=== PATIENT | female | born 1965 | race Caucasian/White ===

== ENCOUNTER → 2019-12-05 13:48 | Outpatient (BNVA) | payer OTHER, SELFPAY | PROVIDERS: Family Provider Family Medicine; PCP Family Medicine; Visit Provider Otolaryngology | DX: R09.81 Nasal congestion (principal); J34.2 Deviated nasal septum; J34.3 Hypertrophy of nasal turbinates; R43.8 Other disturbances of smell and taste; J32.9 Chronic sinusitis, unspecified; H91.90 Unspecified hearing loss, unspecified ear | CPT/HCPCS: 99203; 99214 ==

== ENCOUNTER 2019-12-23 11:27 | Outpatient (CLI) | payer OTHER, SELFPAY ==
--- NOTE | 2019-12-23 11:36 | MM_ITS ---
WS: [id number] BILATERAL DIGITAL SCREENING MAMMOGRAPHY WITH CAD CLINICAL INFORMATION: SCREENING HISTORY: Screening mammogram. No current complaints. COMPARISON: July 11, 2016 TECHNIQUE: Bilateral CC and MLO views. FINDINGS: Scattered fibroglandular densities bilaterally. No suspicious focal mass, asymmetry, calcifications, or architectural distortion. No evidence of malignancy. MM/[id number] IMPRESSION: BI-RADS: 1-Negative FOLLOW UP: 1 Year Follow-up Recommend return to annual screening mammography.
== END 2019-12-23 11:28 | disposition home or self-care (01) ==
LOC: RADSHAW 11:28
PROVIDERS: Family Provider Family Medicine; PCP Family Medicine; Visit Provider Family Medicine
DX: Z12.31 Encounter for screening mammogram for malignant neoplasm of breast (principal)
CPT/HCPCS: 77067

== ENCOUNTER 2019-12-23 14:59 | Outpatient (CLI) | payer OTHER, SELFPAY ==
--- NOTE | 2019-12-23 15:00 | CT_ITS ---
WS: [id number] CT SINUSES TECHNIQUE: Noncontrast CT of the paranasal sinuses with coronal and sagittal reformatted images. CLINICAL INFORMATION: Chronic sunusitis COMPARISON: None. DLP: 524.[address] scans at [facility] use at least one of these dose optimization techniques: automat ed exposure control; mA and/or kV adjustment per patient size (includes targeted exams where dose is matched to clinical indication); or iterative reconstruction. FINDINGS: Left to right nasal septal deviation measuring 5.3 mm with a rightward directed spur. Paranasal sinuses are well aerated. Mild narrowing of the ostiomeatal units bilaterally. Left angi bullosa. Maxillary sinuses are well aerated. Hypoplastic frontal sinuses. Ethmoid air cells are well aerated. Sphenoid sinuses are well aerated. M ild narrowing along the right sphenoid sinus ostia. Mastoid air cells are well aerated. Normal parapharyngeal fat. Partially visualized intracranial contents are normal. CT/CT sinus wo con* [id number] IMPRESSION: 1. Left to right nasal septal deviation measuring 5.3 mm with a rightward dire cted spur. 2. Ostiomeatal units are patent with mild narrowing. 3. Left angi bullosa. 4. Hypoplastic frontal sinuses. 5. Paranasal sinuses are well aerated. Mild narrowing along the right sphenoid sinus ostia. 6. Mastoid air cells are well aerated.
== END 2019-12-23 15:00 | disposition home or self-care (01) ==
LOC: RAD 14:59
PROVIDERS: Family Provider Family Medicine; PCP Family Medicine; Visit Provider Otolaryngology
DX: J34.89 Other specified disorders of nose and nasal sinuses (principal); J32.9 Chronic sinusitis, unspecified; J34.2 Deviated nasal septum
CPT/HCPCS: 70486

== ENCOUNTER → 2019-12-30 11:35 | Outpatient (BNVA) | payer OTHER, SELFPAY | PROVIDERS: Family Provider Family Medicine; PCP Family Medicine; Visit Provider Otolaryngology | DX: R09.81 Nasal congestion (principal); J34.2 Deviated nasal septum; J34.3 Hypertrophy of nasal turbinates; R43.8 Other disturbances of smell and taste; H91.90 Unspecified hearing loss, unspecified ear | CPT/HCPCS: 99213; 99214 ==

== ENCOUNTER → 2020-05-28 10:12 | Outpatient (BNVA) | payer OTHER, SELFPAY | PROVIDERS: Family Provider Family Medicine; PCP Family Medicine; Visit Provider Obstetrics & Gynecology | DX: Z12.4 Encounter for screening for malignant neoplasm of cervix (principal); L73.2 Hidradenitis suppurativa; N95.1 Menopausal and female climacteric states | CPT/HCPCS: 88175 ==

== ENCOUNTER 2020-06-21 12:32 | Emergency (ER) | payer OTHER, SELFPAY ==
[2020-06-21 12:41] VITALS: BP 132/81; PULSE 80; RESP 18; TEMP 36.8; O2SAT 97; BMI 50.9
--- NOTE | 2020-06-21 13:10 | CT_ITS ---
WS: [id number] CT ABDOMEN AND PELVIS WITH CONTRAST HISTORY: pain, RIGHT lower quadrant pain TECHNIQUE: Imaging performed of the abdomen and pelvis with IV contrast. Single phase imaging of the abdomen. Coronal and sagittal reformats are submitted. All CT scans at [facility] use at least one of these dose optimization techniques: automated exposure control; mA and/or kV adjustment per patient size (includes targeted exams where dose is matched to clinical indication); or iterativ e reconstruction. IV CONTRAST: Omnipaque 300; 95 mL IV. Oral contrast: No DLP: 1908.19 mGy.cm COMPARISON: None available. Lower thorax: 2 mm nodule along the LEFT major fissure. Heart is normal size. Small hiatal hernia. Liver/biliary system: Mild hepatomegaly and a and hepatic steatosis. Gallbladder: Normal. No gallstones or wall thickening. No pericholecystic fluid. Pancreas: Normal. Spleen: Normal size spleen with a calcified granuloma. Adrenal glands: Normal. Right kidney: Normal. Left kidney: Normal. Aorta: Normal. Lymphadenopathy: None. Free fluid: None. GI tract: Normal appendix. No GI tract obstruction. Numerous diverticula in the descending and sigmoi d colon. No evidence for acute diverticulitis. Abdominal wall: Unremarkable abdominal wall. No hernia. Pelvis: No free fluid or adenopathy. Minimally distended urinary bladder. Uterus and ovaries are nega tive. Bones: Unremarkable. CT/CT abdomen pelvis w con* [id number] IMPRESSION: 1. Normal appendix. 2. No renal calcification or obstruction. 3. Colonic diverticulosis without acute diverticulitis.
--- NOTE | 2020-06-21 13:11 | ED_ITS ---
HPI - Abdominal Pain General: Chief Complaint: Abdominal Pain Stated Complaint: lower r side pain Time Seen by Provider: 06/21/20 13:03 History of Present Illness: HPI narrative: Patient states right lower quadrant pain since last night has been nauseated has not vomited does have diarrhea. Has fever and chills. MD elicited complaint: abdominal pain Onset (ago): hour(s) Pain Consistency: constant Location: RLQ Severity: moderate Quality: aching Radiation: none Exacerbating factors: nothing Relieving factors: nothing Context: recent antibiotic use Associated Symptoms: Reports nausea; Denies chills and fever(s) Review of Systems Const: Denies: fever(s), chills or body aches Eyes: Denies: change in vision or blurry vision ENMT: Denies: throat pain or nasal congestion Card: Denies: chest pain or dyspnea on exertion Resp: Denies: dyspnea, productive cough or non-productive cough GI: Reports: abdominal pain and nausea Musc: Denies: extremity pain Skin/Breast: Denies: rash Neuro: Denies: headache(s) Psych: Denies: anxiety or depression Familia/Lymph: Denies: easy bruising PFSH ED PFSH: Medical History (Updated 05/31/20 @ 18:24 by Campbell Loving MD) Diabetes Generalized anxiety disorder Hearing loss Hidradenitis suppurativa Hyperlipidemia Hypertension Hyposmia Menopause syndrome Nasal septal deformity Nasal turbinate hypertrophy Surgical History (Updated 05/31/20 @ 18:18 by Campbell Loving MD) History of hand surgery Reattachment of the left middle finger and pinky History of hemorrhoidectomy History of left shoulder replacement (10/12/18) History of melanoma excision Left shoulder and right bicep regions Family History Mother Hypertension Hypercholesterolemia Family history of thyroid problem CAD (coronary artery disease) Heart disease Sister Family history of thyroid problem Brother Colon cancer Social History Smoking and tobacco status: never smoked Alcohol intake: never Marital status: Current occupational status: employed Physical Exam Const: COMMON NORMALS: no acute distress, average body habitus and patient oriented x3 HENMT: COMMON NORMALS: normocephalic HEAD & SCALP: normal to inspection and normocephalic FACE & SINUS: normal facial exam Eye: COMMON NORMALS: conjunctivae normal GENERAL EYE: appearance normal, both eyes and all related structures CONJUNCTIVA: Yes conjunctivae normal Neck/C-Spine: COMMON NORMALS: no JVD Chest: COMMONS NORMALS: normal inspection of the chest Resp: COMMON NORMALS: normal respiratory effort and clear to auscultation bilaterally AUSCULTATION: clear to auscultation bilaterally Cardio: COMMON NORMALS: no JVD, regular rate and regular rhythm RATE: regular rate RHYTHM: regular rhythm GI: COMMON NORMALS: Normal to inspection, nondistended, normoactive bowel sounds present PALPATION: Yes Tenderness to palpation present (GI) Details: RLQ Extremity: COMMON NORMALS: normal to inspection and full ROM Neuro: COMMON NORMALS: patient oriented x3 Course Vital Signs: Vital signs: Vital Signs Temperature 98.3 F 06/21/20 12:41 Pulse Rate 80 06/21/20 12:41 Respiratory Rate 18 06/21/20 12:41 Blood Pressure 132/81 06/21/20 12:41 Pulse Oximetry 97 06/21/20 12:41 Discharge Plan Discharge Prescriptions: No Action atorvastatin 10 mg tablet 10 mg PO ONCE RF: 0 lisinopril-hydrochlorothiazide 20-25 mg tablet 1 tab PO ONCE RF: 0 ibuprofen 800 mg tablet 800 mg PO TID RF: 0 sertraline 100 mg tablet 100 mg PO BID RF: 0 tizanidine 4 mg tablet 4 mg PO ONCE PRNRF: 0 metformin 1,000 mg tablet extended release 24hr 500 mg PO BID RF: 0 citalopram [Celexa] 20 mg tablet 20 mg PO DAILY RF: 0 spironolactone 100 mg tablet 100 mg PO DAILY Qty: 90 RF: 3 sulfamethoxazole-trimethoprim [Bactrim DS] 800-160 mg tablet 1 tab PO BID Qty: 14 RF: 0 doxycycline hyclate 100 mg capsule 100 mg PO DAILY Qty: 30 RF: 0 estradiol 0.5 mg tablet 0.5 mg PO DAILY Qty: 90 RF: 3 medroxyprogesterone [Provera] 2.5 mg tablet 2.5 mg PO DAILY Qty: 90 RF: 3 Coding Level of Care Code ED 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
[2020-06-21 13:44] LABS: Basophils # 0.1 10^3/uL (0.0-0.1); Basophils % 0.5 %; Eosinophils # 0.1 10^3/uL (0.0-0.8); Eosinophils % 1.1 %; Hematocrit 39.4 % (37.0-47.0); Hemoglobin 12.7 g/dL (11.5-15.3); Lymphocytes # 4.2 10^3/uL (0.8-4.8); Lymphocytes % 42.9 %; Mean Corpuscular HGB Conc 32.2 g/dL (30.0-36.0); Mean Platelet Volume 10.3 fL (7.4-10.4); Monocytes # 0.8 10^3/uL (0.2-0.9); Monocytes % 7.8 %; Neutrophils # 4.65 10^3/uL (1.8-7.7); Neutrophils % 47.5 %; Nucleated Red Blood Cells % 0 %; Platelet Count 274 10^3/cmm (130-400); Red Blood Count 4.38 10^6/uL (4.1-5.3); Red Cell Distribution Width 13.1 % (12.1-15.1); White Blood Count 9.8 10^3/uL (4.0-10.0)
[2020-06-21 14:01] LABS: Alanine Aminotransferase 31 U/L (0-33); Albumin Level 4.5 g/dL (3.5-5.2); Alkaline Phosphatase 89 IU/L (35-105); Anion Gap 16.3 (5-19); Aspartate Amino Transferase 22 U/L (0-32); Blood Urea Nitrogen 21 mg/dL (6-20); Carbon Dioxide 27 mmol/L (22-29); Chloride 100 mmol/L (98-107); Globulin 3.3 g/dL (1.3-4.6); Glomerular Filtration Rate 86.6 mL/min (90-130); Glucose 107 mg/dL (65-115); Lipase 38 U/L (13-60); Osmolality Calculated 285 mOsm/kg (285-295); Potassium 4.3 mmol/L (3.5-5.1); Sodium 139 mmol/L (136-145); Total Bilirubin 0.3 mg/dL (0.15-1.2); Total Protein 7.8 g/dL (6.6-8.7)
[2020-06-21 14:04] LABS: Add Urine Microscopic? NO
[2020-06-21] MEDS: ketorolac 30 mg/mL INJ IVP (14:04)
[2020-06-21] MEDS: sodium chloride 0.9% 1,000 ML 999 ML IV (14:04)
[2020-06-21] MEDS: ondansetron 2 mg/ML SDV 2 mL 4 MG IVP (14:04)
[2020-06-21 14:05] LABS: Bilirubin Urine Neg (NEGATIVE); Blood Urine Neg (Negative); Glucose Urine UA Norm (Normal); Ketones Urine Negative (Negative); Leukocyte Esterase Urine Negative (Negative); Nitrate Urine Negative (Negative); Protein Urine Neg (Negative); Specific Gravity, Urine 1.025 (1.005-1.030); Urine Appearance Clear (CLEAR); Urine Color Yellow (Yellow); Urobilinogen Urine Neg (Negative); pH Urine 5 (5-7)
[2020-06-21 14:56] VITALS: BP 103/60; PULSE 85; O2SAT 88
--- NOTE | 2020-06-21 14:57 | PC.NURSE ---
pt asleep and having apneic episodes with oxygen saturation as low as 81%. nurse applied NC 2L/min
[2020-06-21] MEDS: iohexol 300 mg/mL 100 mL Btl IV (15:14)
[2020-06-21 17:13] VITALS: BP 125/77; PULSE 71; O2SAT 99
== END 2020-06-21 17:15 | disposition home or self-care (01) ==
PROVIDERS: Emergency Provider Nurse Practitioner Family; PCP Family Medicine
DX: R10.9 Unspecified abdominal pain (principal); E11.9 Type 2 diabetes mellitus without complications; E78.5 Hyperlipidemia, unspecified; I10 Essential (primary) hypertension
CPT/HCPCS: 12345; 74177; 80053; 81003; 83690; 85025; 96361; 96374; 96375; 96376; 99282; 99283; J1885; J2405; J7030; Q9967

== ENCOUNTER 2021-02-11 11:16 | Outpatient (CLI) | payer OTHER, SELFPAY ==
--- NOTE | 2021-02-11 11:26 | MM_ITS ---
WS: [id number] SCREENING DIGITAL MAMMOGRAM WITH CAD HISTORY: SCREENING COMPARISON: 12/23/2019, 07/21/2016 Bilateral CC and MLO views submitted. Computer aided detection analyzed. Breast composition: The breasts are heterogeneously dense, which may obscure small masses. Asymmetry central to the RIGHT nipple at a middle depth measures 10 mm. This may be superimposed fibroglandular tissue. Not definitely seen on the lateral projection. MM/[place] [id number] IMPRESSION: BI-RADS: 0-Incomplete: Need additional imaging evaluation FOLLOW UP: Need Additional Imaging RIGHT breast: Spot compression views (CC ). True ML. Ultrasound to follow if ab normality persists.
== END 2021-02-11 11:17 | disposition home or self-care (01) ==
LOC: RADSHAW 11:19
PROVIDERS: Visit Provider Nurse Practitioner Family
DX: Z12.31 Encounter for screening mammogram for malignant neoplasm of breast (principal); N64.89 Other specified disorders of breast
CPT/HCPCS: 77067

== ENCOUNTER 2021-02-18 10:40 | Outpatient (CLI) | payer OTHER, SELFPAY ==
--- NOTE | 2021-02-18 10:47 | US_ITS ---
WS: [id number] ADDITIONAL VIEWS RIGHT BREAST RIGHT breast ultrasound, limited HISTORY: ABNORMAL MAMMOGRAM COMPARISON: 02/11/2021 and 12/23/2019 Compression views right CC projection. True ML also submitted. Asymmetry persists on the CC projection central to the nipple at a middle depth measuring 12 mm. I joseph spect this is in the central breast. Cannot definitely see whether this is above or below the nipple line. RIGHT breast ultrasound, limited. At 12:00, 2 cm from the nipple is a hypoechoic ovoid mass measuring 9 x 6 x 6 mm. Mild peripheral inc reased vascularity. This corresponds in size and position to the mammographic abnormality. There are several adjacent benign cyst. US/US breast RT limited* [id number] IMPRESSION: BI-RADS: 4-Suspicious Finding-Biopsy Should Be Considered FOLLOW-UP: Biopsy Recommended Ultrasound-guided biopsy recommended of the mass at 12:00 RIGHT breast. Report called and given to Maribel at the time of dictation.
== END 2021-02-18 10:41 | disposition home or self-care (01) ==
LOC: RADSHAW 10:42
DX: R92.8 Other abnormal and inconclusive findings on diagnostic imaging of breast (principal); N63.15 Unspecified lump in the right breast, overlapping quadrants
CPT/HCPCS: 76642; 77065

== ENCOUNTER → 2021-10-04 09:52 | Outpatient (BNVA) | payer OTHER, SELFPAY | PROVIDERS: Visit Provider Obstetrics & Gynecology | DX: N89.8 Other specified noninflammatory disorders of vagina (principal) | CPT/HCPCS: 87070; 87205; 87481; 87491; 87512; 87591; 87661; 87798; 87799 ==

== ENCOUNTER → 2021-10-28 10:03 | Outpatient (BNVA) | payer OTHER, SELFPAY | PROVIDERS: Visit Provider Obstetrics & Gynecology | DX: Z01.419 Encounter for gynecological examination (general) (routine) without abnormal findings (principal); D25.9 Leiomyoma of uterus, unspecified | CPT/HCPCS: 76830 ==

== ENCOUNTER → 2021-11-08 15:23 | Outpatient (BNVA) | payer OTHER, SELFPAY | PROVIDERS: Visit Provider Obstetrics & Gynecology | DX: N76.0 Acute vaginitis (principal); B96.89 Other specified bacterial agents as the cause of diseases classified elsewhere; Z86.19 Personal history of other infectious and parasitic diseases | CPT/HCPCS: 87481; 87512; 87661; 87798; 87799 ==

== ENCOUNTER 2023-01-30 19:16 | Emergency (ER) | payer OTHER, SELFPAY ==
[2023-01-30 19:23] VITALS: BP 130/75; PULSE 90; RESP 18; TEMP 36.6; O2SAT 96; BMI 45.3
--- NOTE | 2023-01-30 23:08 | XRR_ITS ---
PROCEDURE INFORMATION: Exam: XR Right Foot Exam date and time: 01/30/2023 11:19 PM Age: 58 years old Clinical indication: Swelling, leg or foot; Additional info: Forefoot pain, swelling redness TECHNIQUE: Imaging protocol: Radiologic exam of the right foot. Views: 3 or more views. COMPARISON: No relevant prior studies available. FINDINGS: Bones/joints: Normal. Soft tissues: Normal. XR/XR foot RT min 3V* [id number] IMPRESSION: No acute osseous findings.
--- NOTE | 2023-01-30 23:08 | XRR_ITS ---
PROCEDURE INFORMATION: Exam: XR Left Foot Exam date and time: 01/30/2023 11:17 PM Age: 58 years old Clinical indication: Swelling, leg or foot; Additional info: Forefoot pain, swelling redness TECHNIQUE: Imaging protocol: Radiologic exam of the left foot. Views: 3 or more views. COMPARISON: No relevant prior studies available. FINDINGS: Bones/joints: Normal. Soft tissues: Normal. XR/XR foot LT min 3V* [id number] IMPRESSION: No acute osseous findings.
[2023-01-30 23:58] VITALS: BP 146/74; PULSE 90; RESP 18; O2SAT 100
[2023-01-31 00:04] LABS: Basophils % 0.3 %; Eosinophils # 0.1 10^3/uL (0.0-0.8); Eosinophils % 0.7 %; Erythrocyte Sedimentation Rate 7 mm/hr (0-15); Hematocrit 36.2 % (37.0-47.0); Lymphocytes # 3.6 10^3/uL (0.8-4.8); Lymphocytes % 34.6 %; Mean Corpuscular HGB Conc 33.1 g/dL (30.0-36.0); Mean Corpuscular Hemoglobin 29.9 pg (28.0-34.0); Mean Corpuscular Volume 90.3 fl (81-99); Mean Platelet Volume 10.5 fL (7.4-10.4); Monocytes # 1.1 10^3/uL (0.2-0.9); Monocytes % 10.6 %; Neutrophils # 5.54 10^3/uL (1.8-7.7); Neutrophils % 53.6 %; Nucleated Red Blood Cells % 0 %; Platelet Count 271 10^3/cmm (130-400); Red Blood Count 4.01 10^6/uL (4.1-5.3); Red Cell Distribution Width 12.5 % (12.1-15.1); White Blood Count 10.3 10^3/uL (4.0-10.0)
--- NOTE | 2023-01-31 00:05 | ED_ITS ---
HPI - Extremity Problem General: Chief complaint: Extremity Problem,Nontraumatic Stated complaint: bilateral feet pain/swelling Time Seen by Provider: 01/30/23 22:46 Source: patient and family History of Present Illness: 58-year-old female with a history of gout . She was treated for a flare MD Complaint: joint swelling and joint pain Onset (ago): day(s) Pain Consistency: constant Location: left, right and toe Quality: stabbing and aching Radiation: proximal Relieving factors: nothing Exacerbating factors: range of motion, weight bearing and walking Associated symptoms: Reports arthralgias and rash (mild); Deny chest pain, fever(s) or short of breath Review of Systems Const: Denies: fever(s) Card: Denies: chest pain Resp: Denies: dyspnea GI: Denies: abdominal pain, nausea or vomiting Musc: Reports: joint pain, joint swelling, joint redness, joint warmth and joint stiffness Skin/Breast: Reports: rash (mild) PFSH ED PFSH: Medical History Diabetes Generalized anxiety disorder Hearing loss Hidradenitis suppurativa Hyperlipidemia Hypertension Hyposmia Menopause syndrome Nasal septal deformity Nasal turbinate hypertrophy Obstructive sleep apnea Surgical History History of colonoscopy History of hand surgery Reattachment of the left middle finger and pinky History of hemorrhoidectomy History of left shoulder replacement (10/12/18) History of melanoma excision Left shoulder and right bicep regions History of nasal surgery History of tonsillectomy Family History Mother Hypertension Hypercholesterolemia Family history of thyroid problem CAD (coronary artery disease) Heart disease Sister Family history of thyroid problem Brother Colon cancer Denies family history of Diabetes Clotting disorder Chronic kidney disease (CKD) Bleeding disorder Stroke Social History Smoking and tobacco status: never smoked Alcohol intake: never Marital status: Current occupational status: employed Physical Exam Const: COMMON NORMALS: no acute distress HENMT: COMMON NORMALS: normocephalic and atraumatic HEAD & SCALP: normocephalic and atraumatic Eye: COMMON NORMALS: Equal, round and reactive pupils present and EOMs intact bilaterally PUPIL: Yes Equal, round and reactive pupils present Chest: CHEST: Yes Symmetrical chest wall rise Resp: COMMON NORMALS: normal respiratory effort, No use of accessory muscles and clear to auscultation bilaterally AUSCULTATION: clear to auscultation b ilaterally Cardio: COMMON NORMALS: regular rate and regular rhythm RATE: regular rate RHYTHM: regular rhythm GI: COMMON NORMALS: Normal to inspection, nondistended, normoactive bowel sounds present Extremity: OTHER: First and second MTPs bilaterally swollen, red, tender to touch. Worse on right than left. Neuro: SIDDHARTHA COMA SCALE: document GCS findings Crumpler coma scale eye opening: Spontaneous Crumpler coma scale verbal response: Orientated Crumpler coma scale motor response: Obey commands Siddhartha coma scale total score: 15 Course Vital Signs: Vital signs: Vital Signs Temperature 97.8 F 01/30/23 19:23 Pulse Rate 90 01/31/23 01:23 Respiratory Rate 18 01/31/23 01:23 Blood Pressure 146/74 01/31/23 01:23 Pulse Oximetry 100 01/31/23 01:23 Oxygen Delivery Me thod 01/30/23 23:58 MDM - Extremity (Nontraumatic) Medical Decision Making 58-year-old female with bilateral forefoot pain, redness, and swelling. X-rays are negative. White blood cell count is 10. Sed rate is only 7. CRP is 42. She has been treated for gout in the past with improvement. Clinically this appears to be gout again. Her uric acid level is elevated at 9. She will get colchicine. Tramadol for pain control. Close outpatient follow-up. Lab Data 01/30/23 23:44 01/30/23 23:44 Radiology Impressions Foot X-Ray 01/30/23 23:08 IMPRESSION: No acute osseous findings. Laboratory Results WBC 10.3 10^3/uL (4.0-10.0) H 01/30/23 23:44 RBC 4.01 10^6/uL (4.1-5.3) L 01/30/23 23:44 Hgb 12.0 g/dL (11.5-15.3) 01/30/23 23:44 Hct 36.2 % (37.0-47.0) L 01/30/23 23:44 MCV 90.3 fl (81-99) 01/30/23 23:44 MCH 29.9 pg (28.0-34.0) 01/30/23 23:44 MCHC 33.1 g/dL (30.0-36.0) 01/30/23 23:44 RDW 12.5 % (12.1-15.1) 01/30/23 23:44 Plt Count 271 10^3/cmm (130-400) 01/30/23 23:44 MPV 10.5 fL (7.4-10.4) H 01/30/23 23:44 Neut % (Auto) 53.6 % 01/30/23 23:44 Lymph % (Auto) 34.6 % 01/30/23 23:44 [place] % (Auto) 10.6 % 01/30/23 23:44 Eos % (Auto) 0.7 % 01/30/23 23:44 Baso % (Auto) 0.3 % 01/30/23 23:44 Neut # (Auto) 5.54 10^3/uL (1.8-7.7) 01/30/23 23:44 Lymph # (Auto) 3.6 10^3/uL (0.8-4.8) 01/30/23 23:44 [place] # (Auto) 1.1 10^3/uL (0.2-0.9) H 01/30/23 23:44 Eos # (Auto) 0.1 10^3/uL (0.0-0.8) 01/30/23 23:44 Baso # (Auto) 0.0 10^3/uL (0.0-0.1) 01/30/23 23:44 Nucleated RBC % (auto) 0 % 01/30/23 23:44 Nucleated RBCs # 0.0 /100WBC 01/30/23 23:44 ESR 7 mm/hr (0-15) 01/30/23 23:44 Sodium 142 mmol/L (136-145) 01/30/23 23:44 Potassium 4.3 mmol/L (3.5-5.1) 01/30/23 23:44 Chloride 102 mmol/L (98-107) 01/30/23 23:44 Carbon Dioxide 27 mmol/L (22-29) 01/30/23 23:44 Anion Gap 17.3 (5-19) 01/30/23 23:44 BUN 20 mg/dL (6-20) 01/30/23 23:44 Creatinine 1.0 mg/dL (0.5-0.9) H 01/30/23 23:44 GFR Calculation 56.7 mL/min (90-130) L 01/30/23 23:44 Glucose 108 mg/dL (65-115) 01/30/23 23:44 Calculated Osmolality 297 mOsm/kg (285-295) H 01/30/23 23:44 Uric Acid 9.1 mg/dL (2.4-5.7) H 01/30/23 23:44 Calcium 9.0 mg/dL (8.5-10.5) 01/30/23 23:44 Magnesium 1.4 mg/dL (1.7-2.3) L 01/30/23 23:44 Total Bilirubin 0.4 mg/dL (0.15-1.2) 01/30/23 23:44 AST 24 U/L (0-32) 01/30/23 23:44 ALT 24 U/L (0-33) 01/30/23 23:44 Alkaline Phosphatase 94 U/L (35-105) 01/30/23 23:44 C-Reactive Protein 42.4 mg/L (0.0-4.9) H 01/30/23 23:44 Total Protein 7.3 g/dL (6.6-8.7) 01/30/23 23:44 Albumin 4.1 g/dL (3.5-5.2) 01/30/23 23:44 Globulin 3.2 g/dL (1.3-4.6) 01/30/23 23:44 Discharge Plan Discharge Patient Disposition: Home Clinical Impression: Gout Condition: Stable Prescriptions: New colchicine 0.6 mg capsule 0.6 mg PO BID Qty: 30 0RF tramadol 50 mg tablet 50 mg PO TID PRN (Reason: pain) Qty: 10 0RF No Action atorvastatin 10 mg tablet 10 mg PO DAILY lisinopril-hydrochlorothiazide 20-25 mg tablet 1 tab PO DAILY tizanidine 4 mg tablet 4 mg PO ONCE PRN (Reason: muscle spasms) Rx Instructions: at bedtime metformin 1,000 mg tablet extended release 24hr 1,000 mg PO BID ibuprofen 800 mg tablet 800 mg PO TID PRN fenugreek seed extract 500 mg capsule PO biotin 1 mg tablet 1 mg PO DAILY apple cider vinegar 300 mg tablet 600 mg PO DAILY metronidazole [Flagyl] 500 mg tablet 500 mg PO BID Qty: 14 0RF doxycycline hyclate 100 mg tablet 100 mg PO BID Qty: 28 0RF oxybutynin chloride 5 mg tablet 5 mg PO DAILY Qty: 30 3RF Randolph Low Dose Aspirin 81 mg Tablet,Delayed Release (Dr/Ec) 81 mg PO DAILY Discharge Orders: Discharge ED (Routine); Ordered 01/31/23 Ordered By: Fitz Cintron Patient Instructions: Gout (ED), Opioid Safety, Pain Management Activity Restrictions/Additional Instructions: Take the colchicine pill 3 times daily on Thursday, then twice daily following. Treat for a total of 10 days at least. Return for fever, worsening pain despite treatment, any other concerning symptoms. Follow-up with your doctor. 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
[2023-01-31 00:21] LABS: Alanine Aminotransferase 24 U/L (0-33); Albumin Level 4.1 g/dL (3.5-5.2); Alkaline Phosphatase 94 U/L (35-105); Anion Gap 17.3 (5-19); Aspartate Amino Transferase 24 U/L (0-32); Blood Urea Nitrogen 20 mg/dL (6-20); C Reactive Protein 42.4 mg/L (0.0-4.9); Carbon Dioxide 27 mmol/L (22-29); Chloride 102 mmol/L (98-107); Globulin 3.2 g/dL (1.3-4.6); Glomerular Filtration Rate 56.7 mL/min (90-130); Glucose 108 mg/dL (65-115); Magnesium 1.4 mg/dL (1.7-2.3); Osmolality Calculated 297 mOsm/kg (285-295); Potassium 4.3 mmol/L (3.5-5.1); Sodium 142 mmol/L (136-145); Total Bilirubin 0.4 mg/dL (0.15-1.2); Total Protein 7.3 g/dL (6.6-8.7)
[2023-01-31 00:31] LABS: Uric Acid 9.1 mg/dL (2.4-5.7)
[2023-01-31 01:23] VITALS: BP 146/74; PULSE 90; RESP 18; O2SAT 100
[2023-01-31] MEDS: colchicine 0.6 mg Tablet PO (01:23)
--- NOTE | 2023-02-10 14:27 | DCPLANNER ---
Patient was called due to no primary care physician - patient already has a primary care physician
== END 2023-01-31 01:24 | disposition home or self-care (01) ==
PROVIDERS: Emergency Provider Emergency Medicine
DX: M10.9 Gout, unspecified (principal); Z79.84 Long term (current) use of oral hypoglycemic drugs; Z79.82 Long term (current) use of aspirin; E11.9 Type 2 diabetes mellitus without complications; E78.5 Hyperlipidemia, unspecified; I10 Essential (primary) hypertension
CPT/HCPCS: 36415; 73630; 80053; 83735; 84550; 85025; 85651; 86140; 99283

== ENCOUNTER 2023-02-22 15:40 | Emergency (ER) | payer OTHER, SELFPAY ==
[2023-02-22 15:47] VITALS: BP 138/85; PULSE 97; TEMP 36.8; O2SAT 98; BMI 44.9
--- NOTE | 2023-02-22 16:20 | ED_ITS ---
Documented by User: MONIE Duong 03/05/23 15:41 HPI - Extremity Problem General: Chief complaint: Extremity Problem,Nontraumatic Stated complaint: states gout/feet/leg pain Time Seen by Provider: 02/22/23 16:01 History of Present Illness: Patient is a 8-year-old female that presents to the emergency department with right foot pain. Patient has a history of gout that began in December of this year. Patient was treated with colchicine and followed up with allopurinol. Patient arrives today stating that she has had little to no relief in her symptoms. Patient does have a medical history of diabetes, hypertension, hyperlipidemia, and gout. Associated symptoms: Deny chest pain, fever(s) or rash Review of Systems General: Reports: 10 or more systems reviewed and unremarkable except in HPI and below Const: Denies: fever(s), chills, change in appetite, change in weight, fatigue or malaise Eyes: Denies: change in vision, eye discomfort, eye discharge or eye redness ENMT: Denies: throat pain, enlarged tonsils, odynophagia, hoarseness, ear or mastoid pain, ear discharge, change in hearing, tinnitus, nasal discharge, nasal congestion, post nasal drip or sinus pain Card: Denies: chest pain, palpitations, irregular heart rhythm, edema, dyspnea on exertion, orthopnea or leg pain with exertion Resp: Denies: dyspnea, productive cough, non-productive cough, wheezing, stridor or chest congestion GI: Denies: abdominal pain, nausea, vomiting, dysphagia, diarrhea, constipation, bloating, GI cramping or hematochezia : Denies: flank pain, difficulty voiding, dysuria, urinary frequency, urinary urgency, urinary hesitancy, oliguria or hematuria Musc: Denies: neck pain, back pain, extremity pain, joint pain, joint swelling, joint redness, joint warmth or muscle weakness Skin/Breast: Denies: rash, pruritus, erythema, photosensitivity or new lesions Neuro: Denies: headache(s), numbness in extremities, weakness in extremities, sensory changes, lack of coordination, difficulty walking, frequent falls, dizziness, confusion, Slurred speech present, difficulty communicating thoughts, seizure-like activity or involuntary movements Endo: Denies: polyuria, polydipsia or tired all the time Familia/Lymph: Denies: easy bruising or easy bleeding PFS ED PFSH: Medical History Diabetes Generalized anxiety disorder Hearing loss Hidradenitis suppurativa Hyperlipidemia Hypertension Hyposmia Menopause syndrome Nasal septal deformity Nasal turbinate hypertrophy Obstructive sleep apnea Surgical History History of colonoscopy History of hand surgery Reattachment of the left middle finger and pinky History of hemorrhoidectomy History of left shoulder replacement (10/12/18) History of melanoma excision Left shoulder and right bicep regions History of nasal surgery History of tonsillectomy Family History Mother Hypertension Hypercholesterolemia Family history of thyroid problem CAD (coronary artery disease) Heart disease Sister Family history of thyroid problem Brother Colon cancer Denies family history of Diabetes Clotting disorder Chronic kidney disease (CKD) Bleeding disorder Stroke Social History Smoking and tobacco status: never smoked Alcohol intake: never Substance/Drug Use: never Marital status: Current occupational status: employed Physical Exam Const: COMMON NORMALS: no acute distress, patient oriented x3 and alert GENERAL APPEARANCE: cooperative ORIENTATION/CONSCIOUSNESS: Yes awake, Yes oriented to person, Yes oriented to place and Yes oriented to time HENMT: COMMON NORMALS: normocephalic and atraumatic HEAD & SCALP: normocephalic and atraumatic FACE & SINUS: normal facial exam MOUTH: Normal oral and palatal mucosa present THROAT: posterior oropharynx normal Eye: COMMON NORMALS: Equal, round and reactive pupils present, EOMs intact bilaterally, conjunctivae normal and no scleral icterus GENERAL EYE: appearance normal, both eyes and all related structures ALIGNMENT: Yes alignment normal PERIORBITAL: periorbital findings normal CONJUNCTIVA: Yes conjunctivae normal PUPIL: Yes Equal, round and reactive pupils present Neck/C-Spine: COMMON NORMALS: full ROM GENERAL: Yes normal visual inspection Lymph: LYMPHATIC: no lymphadenopathy noted Chest: COMMONS NORMALS: normal inspection of the chest Breast/axilla inspection: Yes no chest deformity, asymmetry, normal contours, no nodules, masses, tenderness Resp: COMMON NORMALS: normal respiratory effort, No retractions, No use of accessory muscles and clear to auscultation bilaterally EFFORT & INSPECTION: Yes able to speak in complete sentences and Yes symmetric chest movement AUSCULTATION: clear to auscultation bilaterally Cardio: COMMON NORMALS: regular rate, regular rhythm and Peripheral pulses 2+ throughout RATE: regular rate RHYTHM: regular rhythm PERIPHERAL PULSES: Peripheral pulses 2+ throughout GI: COMMON NORMALS: Normal to inspection, nondistended, normoactive bowel sounds present, Soft to palpation, non-tender and No hepatosplenomegaly present INSPECTION: Yes normal to inspection AUSCULTATION: Yes normoactive bowel sounds PALPATION: Yes Soft to palpation and Yes No hepatosplenomegaly present RECTAL EXAM: deferred Extremity: COMMON NORMALS: normal to inspection GENERAL: Yes normal exam except as noted OTHER: Right lower extremity: Skin is clean dry and intact Erythema to the dorsal aspect of the right foot Patient is able to dorsiflex plantarflex foot Patient able dorsiflex great toe Sensation intact to light touch at medial, lateral, dorsal, plantar surface of the foot and first webspace DP pulses palpable and cap refills less than 3 seconds Neuro: COMMON NORMALS: patient oriented x3 SENSORIUM/ORIENTATION: Yes alert, Yes oriented to person, Yes oriented to place and Yes oriented to time CRANIAL NERVES: Yes CN normal except as noted Psych: COMMON NORMALS: mental status grossly normal, Normal thought process present, cooperative, activity/motor behavior normal, denies homicidal ideation and denies suicidal ideation THOUGHT PROCESS: Normal thought process present Skin: COMMON NORMALS: no rashes or lesions noted, no wounds and turgor normal GENERAL SKIN EXAM: no rashes or lesions noted and turgor normal Course Vital Signs: Vital signs: Vital Signs Temperature 98.3 F 02/22/23 15:47 Pulse Rate 97 02/22/23 15:47 Blood Pressure 138/85 02/22/23 15:47 Pulse Oximetry 98 02/22/23 15:47 Oxygen Delivery Me thod Room Air 02/22/23 15:47 MDM - Extremity (Nontraumatic) Medical Decision Making Patient has been here in this emergency department multiple times for the same complaint. Differential diagnosis for her foot complaint includes injury/trauma fracture, Charcot foot, gout, cellulitis, Patient underwent XR imaging of the foot which reveal no acute findings. I did obtain a CRP, ESR, uric acid which are pending. Transferring care to Devon BAKER at 1715. Lab Data Radiology Impressions Foot X-Ray 02/22/23 16:22 IMPRESSION: No acute findings. Laboratory Results ESR 25 mm/hr (0-15) H 02/22/23 16:51 Uric Acid 6.6 mg/dL (2.4-5.7) H 02/22/23 16:51 C-Reactive Protein 71.9 mg/L (0.0-4.9) H 02/22/23 16:51 Discharge Plan Discharge Patient Disposition: Home Clinical Impression: Gout Condition: Stable Prescriptions: New colchicine 0.6 mg tablet See Rx Instructions .ROUTE .COMPLEX Qty: 3 0RF Rx Instructions: take 2 tabs immediately, then take one tab 1hr later No Action atorvastatin 10 mg tablet 10 mg PO DAILY lisinopril-hydrochlorothiazide 20-25 mg tablet 1 tab PO DAILY tizanidine 4 mg tablet 4 mg PO ONCE PRN (Reason: muscle spasms) Rx Instructions: at bedtime metformin 1,000 mg tablet extended release 24hr 1,000 mg PO BID ibuprofen 800 mg tablet 800 mg PO TID PRN fenugreek seed extract 500 mg capsule PO biotin 1 mg tablet 1 mg PO DAILY apple cider vinegar 300 mg tablet 600 mg PO DAILY metronidazole [Flagyl] 500 mg tablet 500 mg PO BID Qty: 14 0RF doxycycline hyclate 100 mg tablet 100 mg PO BID Qty: 28 0RF oxybutynin chloride 5 mg tablet 5 mg PO DAILY Qty: 30 3RF Randolph Low Dose Aspirin 81 mg Tablet,Delayed Release (Dr/Ec) 81 mg PO DAILY colchicine 0.6 mg capsule 0.6 mg PO BID Qty: 30 0RF tramadol 50 mg tablet 50 mg PO TID PRN (Reason: pain) Qty: 10 0RF Discharge Orders: Discharge ED (Routine); Ordered 02/22/23 Ordered By: Nhung Osorio Discharge Diet: As Directed Discharge Activity: Increase activity as tolerated Patient Instructions: Gout (ED) Activity Restrictions/Additional Instructions: X-ray today is unremarkable for any acute concerns. Lab work indicates elevated uric acid levels and inflammatory processes resembling that of what we see with gout. We are treating you acutely for a gout flareup and have provided you medication for gout as well as inflammation and pain. If you take the indomethacin, hold any other NSAID you are currently taking. We recommend a follow-up appoint with your primary care in 48 hours for recheck. Stand Alone Forms: Work/School Release Sign Out Sign Out Data: Patient Sign Out occurred on 02/22/23 at 17:25. Patient's care was discussed, and care was transferred from to OLIVIA Leroy. Coding Level of Care Code ED Forensic Examiner for Chg Fwd Documented by User: OLIVIA Leroy 02/23/23 02:58 HPI - Extremity Problem General: Chief complaint: Extremity Problem,Nontraumatic Stated complaint: states gout/feet/leg pain Time Seen by Provider: 02/22/23 16:01 PFSH ED PFSH: Medical History Diabetes Generalized anxiety disorder Hearing loss Hidradenitis suppurativa Hyperlipidemia Hypertension Hyposmia Menopause syndrome Nasal septal deformity Nasal turbinate hypertrophy Obstructive sleep apnea Surgical History History of colonoscopy History of hand surgery Reattachment of the left middle finger and pinky History of hemorrhoidectomy History of left shoulder replacement (10/12/18) History of melanoma excision Left shoulder and right bicep regions History of nasal surgery History of tonsillectomy Family History Mother Hypertension Hypercholesterolemia Family history of thyroid problem CAD (coronary artery disease) Heart disease Sister Family history of thyroid problem Brother Colon cancer Denies family history of Diabetes Clotting disorder Chronic kidney disease (CKD) Bleeding disorder Stroke Social History Smoking and tobacco status: never smoked Alcohol intake: never Substance/Drug Use: never Marital status: Current occupational status: employed Course Vital Signs: Vital signs: Vital Signs Temperature 98.3 F 02/22/23 15:47 Pulse Rate 97 02/22/23 15:47 Blood Pressure 138/85 02/22/23 15:47 Pulse Oximetry 98 02/22/23 15:47 Oxygen Delivery Me thod Room Air 02/22/23 15:47 MDM - Extremity (Nontraumatic) Medical Decision Making Patient has been here in this emergency department multiple times for the same complaint. Differential diagnosis for her foot complaint includes injury/trauma fracture, Charcot foot, gout, cellulitis, Patient underwent XR imaging of the foot which reveal no acute findings. I did obtain a CRP, ESR, uric acid which are pending. Transferring care to Devon BAKER at 1715. Nhung Osorio PA-C: Patient's lab work shows an elevated uric acid as well as elevated inflammatory markers. Discussed this with the patient. We discussed treatment with colchicine and indomethacin provided for comfort/pain relief for the next few days. Patient was given supplemental information regarding purine restricted diet as she did have questions regarding a gout diet. Recommended she touch base with her primary care doctor if she has any concerns or, return to the emergency department for any acute worsening of her condition. Differential Diagnosis Likely gout, cellulitis and lower extremity edema Lab Data Radiology Impressions Foot X-Ray 02/22/23 16:22 IMPRESSION: No acute findings. Laboratory Results ESR 25 mm/hr (0-15) H 02/22/23 16:51 Uric Acid 6.6 mg/dL (2.4-5.7) H 02/22/23 16:51 C-Reactive Protein 71.9 mg/L (0.0-4.9) H 02/22/23 16:51 Discharge Plan Discharge Patient Disposition: Home Clinical Impression: Gout Condition: Stable Prescriptions: New colchicine 0.6 mg tablet See Rx Instructions .ROUTE .COMPLEX Qty: 3 0RF Rx Instructions: take 2 tabs immediately, then take one tab 1hr later No Action atorvastatin 10 mg tablet 10 mg PO DAILY lisinopril-hydrochlorothiazide 20-25 mg tablet 1 tab PO DAILY tizanidine 4 mg tablet 4 mg PO ONCE PRN (Reason: muscle spasms) Rx Instructions: at bedtime metformin 1,000 mg tablet extended release 24hr 1,000 mg PO BID ibuprofen 800 mg tablet 800 mg PO TID PRN fenugreek seed extract 500 mg capsule PO biotin 1 mg tablet 1 mg PO DAILY apple cider vinegar 300 mg tablet 600 mg PO DAILY metronidazole [Flagyl] 500 mg tablet 500 mg PO BID Qty: 14 0RF doxycycline hyclate 100 mg tablet 100 mg PO BID Qty: 28 0RF oxybutynin chloride 5 mg tablet 5 mg PO DAILY Qty: 30 3RF Randolph Low Dose Aspirin 81 mg Tablet,Delayed Release (Dr/Ec) 81 mg PO DAILY colchicine 0.6 mg capsule 0.6 mg PO BID Qty: 30 0RF tramadol 50 mg tablet 50 mg PO TID PRN (Reason: pain) Qty: 10 0RF Discharge Orders: Discharge ED (Routine); Ordered 02/22/23 Ordered By: Nhung Osorio Discharge Diet: As Directed Discharge Activity: Increase activity as tolerated Patient Instructions: Gout (ED) Activity Restrictions/Additional Instructions: X-ray today is unremarkable for any acute concerns. Lab work indicates elevated uric acid levels and inflammatory processes resembling that of what we see with gout. We are treating you acutely for a gout flareup and have provided you medication for gout as well as inflammation and pain. If you take the indomethacin, hold any other NSAID you are currently taking. We recommend a follow-up appoint with your primary care in 48 hours for recheck. Stand Alone Forms: Work/School Release Sign Out Sign Out Data: Patient Sign Out occurred on 02/22/23 at 17:25. Patient's care was discussed, and care was transferred from to OLIVIA Leroy. Coding Level of Care Code ED Forensic Examiner for Monika Siddiqui
--- NOTE | 2023-02-22 16:22 | XRR_ITS ---
PROCEDURE INFORMATION: Exam: XR Right Foot Exam date and time: 02/22/2023 4:36 PM Age: 58 years old Clinical indication: Pain; Foot; Right; Additional info: Foot pain TECHNIQUE: Imaging protocol: Radiologic exam of the right foot. Views: 3 or more views. COMPARISON: CR (LOW EXM, ) 01/30/2023 11:19 PM FINDINGS: Bones/joints: Negative for acute bony abnormality. Soft tissues: Normal. XR/XR foot RT min 3V* [id number] IMPRESSION: No acute findings.
[2023-02-22 17:33] LABS: C Reactive Protein 71.9 mg/L (0.0-4.9); Uric Acid 6.6 mg/dL (2.4-5.7)
[2023-02-22 17:48] LABS: Erythrocyte Sedimentation Rate 25 mm/hr (0-15)
--- NOTE | 2023-02-27 11:16 | DCPLANNER ---
Patient was called due to no primary care physician - patient already has a primary care physician
== END 2023-02-22 18:44 | disposition home or self-care (01) ==
PROVIDERS: Emergency Medicine; Nurse Practitioner; Emergency Provider Physician Assistant
DX: M10.9 Gout, unspecified (principal); Z79.84 Long term (current) use of oral hypoglycemic drugs; E11.9 Type 2 diabetes mellitus without complications; E78.5 Hyperlipidemia, unspecified; I10 Essential (primary) hypertension
CPT/HCPCS: 36415; 73630; 84550; 85651; 86140; 99284

== ENCOUNTER 2023-03-13 14:27 | Emergency (ER) | payer OTHER, SELFPAY ==
[2023-03-13 14:33] VITALS: BP 108/72; PULSE 87; RESP 15; TEMP 36.9; O2SAT 97
--- NOTE | 2023-03-13 16:05 | W.ED.EXTPRO ---
HPI - Extremity Problem General: Chief complaint: Extremity Problem,Nontraumatic Stated complaint: possible gout issues Time Seen by Provider: 03/13/23 14:30 Source: patient Mode of arrival: ambulatory Limitations: no limitations History of Present Illness: Patient is a nice 58-year-old female presents to ED today with a complaint of gout to her bilateral feet. Patient states makes her third gout flare over the past few months. She states she was placed on allopurinol and is taking 100mg daily. She states that her first gout flare they measured her uric acid and it was roughly 9. Looking at previous documentation it looks like this was repeated after starting on allopurinol and last uric acid level was 6.6. Patient states she has never seen a primary care or specialist for treatment-only through the ED. She states her last 2 flares were treated with NSAIDs/colchicine/steroids successfully. She states her symptoms today feel identical to previous flares. MD Complaint: extremity pain, extremity swelling, joint swelling and joint pain Onset (ago): day(s) Pain Consistency: constant Location: left, right and lower extremity Quality: burning, stabbing and sharp Radiation: none Relieving factors: nothing Exacerbating factors: weight bearing and walking Associated symptoms: Reports no associated symptoms; Deny chest pain or fever(s) Review of Systems Const: Denies: fever(s), chills, body aches, fatigue or malaise Card: Denies: chest pain Resp: Denies: dyspnea Musc: Reports: extremity pain, extremity swelling, joint pain, joint swelling, joint redness and joint warmth; Denies: neck pain or back pain Neuro: Reports: difficulty walking; Denies: headache(s), numbness in extremities, weakness in extremities or sensory changes PFSH ED PFSH: Medical History Diabetes Generalized anxiety disorder Hearing loss Hidradenitis suppurativa Hyperlipidemia Hypertension Hyposmia Menopause syndrome Nasal septal deformity Nasal turbinate hypertrophy Obstructive sleep apnea Surgical History History of colonoscopy History of hand surgery Reattachment of the left middle finger and pinky History of hemorrhoidectomy History of left shoulder replacement (10/12/18) History of melanoma excision Left shoulder and right bicep regions History of nasal surgery History of tonsillectomy Family History Mother Hypertension Hypercholesterolemia Family history of thyroid problem CAD (coronary artery disease) Heart disease Sister Family history of thyroid problem Brother Colon cancer Denies family history of Diabetes Clotting disorder Chronic kidney disease (CKD) Bleeding disorder Stroke Social History Smoking and tobacco status: never smoked Alcohol intake: never Substance/Drug Use: never Marital status: Current occupational status: employed Physical Exam Const: COMMON NORMALS: no acute distress, patient oriented x3, no limitations, alert and well nourished GENERAL APPEARANCE: cooperative NUTRITIONAL APPEARANCE: obese ORIENTATION/CONSCIOUSNESS: Yes awake, Yes oriented to person, Yes oriented to place and Yes oriented to time Resp: COMMON NORMALS: normal respiratory effort and clear to auscultation bilaterally AUSCULTATION: clear to auscultation bilaterally Cardio: COMMON NORMALS: regular rate and regular rhythm RATE: regular rate RHYTHM: regular rhythm Extremity: COMMON NORMALS: capillary refill normal, no clubbing, cyanosis or edema, no calf tenderness and no pedal edema GENERAL: Yes normal exam except as noted RIGHT LOWER EXTREMITY: Yes foot & digits LEFT LOWER EXTREMITY: Yes foot & digits OTHER: bilateral redness/warmth/swelling to 1st MCP joints consistent with acute gout flares Neuro: COMMON NORMALS: patient oriented x3, moves all extremities, no focal motor deficits and no sensory deficits noted SENSORIUM/ORIENTATION: Yes alert, Yes oriented to person, Yes oriented to place and Yes oriented to time Course Vital Signs: Vital signs: Vital Signs Temperature 98.5 F 03/13/23 14:33 Pulse Rate 87 03/13/23 14:33 Respiratory Rate 15 03/13/23 14:33 Blood Pressure 108/72 03/13/23 14:33 Pulse Oximetry 97 03/13/23 14:33 Oxygen Delivery Me thod Room Air 03/13/23 14:33 MDM - Extremity (Nontraumatic) Medical Decision Making Patient was given IM Kenalog and 1.2 mg of colchicine. I do not feel any blood work at this time is likely to foreign exchange services manager. We will increase her allopurinol to 100 mg twice daily. Recommend she follow-up with primary care and discussed possibly podiatry follow up appointment. Discharge Plan Discharge Patient Disposition: Home Clinical Impression: Gout Qualifiers: Gout site: foot Gout etiology: unspecified cause Chronicity: acute Laterality: unspecified laterality Qualified Code(s): M10.9 - Gout, unspecified Condition: Stable Prescriptions: New allopurinol 100 mg tablet 100 mg PO BID Qty: 30 1RF prednisone 10 mg tablet 10 mg PO DAILY 10 Days Qty: 20 0RF Rx Instructions: Take 5 tabs on day 1-2, 4 tabs on day 3, 3 tabs on day 4, 2 tabs on day 5, and 1 tab on day 6 indomethacin 50 mg capsule 50 mg PO TID Qty: 20 0RF Rx Instructions: administer with food or milk Held ibuprofen 800 mg tablet 800 mg PO TID PRN Hold Instructions: do not take while taking indomethacin No Action atorvastatin 10 mg tablet 10 mg PO DAILY lisinopril-hydrochlorothiazide 20-25 mg tablet 1 tab PO DAILY tizanidine 4 mg tablet 4 mg PO ONCE PRN (Reason: muscle spasms) Rx Instructions: at bedtime metformin 1,000 mg tablet extended release 24hr 1,000 mg PO BID fenugreek seed extract 500 mg capsule PO biotin 1 mg tablet 1 mg PO DAILY apple cider vinegar 300 mg tablet 600 mg PO DAILY metronidazole [Flagyl] 500 mg tablet 500 mg PO BID Qty: 14 0RF doxycycline hyclate 100 mg tablet 100 mg PO BID Qty: 28 0RF oxybutynin chloride 5 mg tablet 5 mg PO DAILY Qty: 30 3RF Randolph Low Dose Aspirin 81 mg Tablet,Delayed Release (Dr/Ec) 81 mg PO DAILY colchicine 0.6 mg capsule 0.6 mg PO BID Qty: 30 0RF tramadol 50 mg tablet 50 mg PO TID PRN (Reason: pain) Qty: 10 0RF colchicine 0.6 mg tablet See Rx Instructions .ROUTE .COMPLEX Qty: 3 0RF Rx Instructions: take 2 tabs immediately, then take one tab 1hr later Discharge Orders: Discharge ED (Routine); Ordered 03/13/23 Ordered By: Arlene Carrillo Patient Instructions: Gout, Low Purine Diet (ED), Gout (ED) Coding Level of Care Code ED Tie Carrier for Monika Siddiqui
[2023-03-13] MEDS: triamcinolone 40 mg/mL SDV IM (16:21)
[2023-03-13] MEDS: colchicine 0.6 mg Tablet 1.2 MG PO (16:22)
--- NOTE | 2023-03-22 09:22 | DCPLANNER ---
TCM called patient due to no primary care physician - patient stated that she sees [facility] in [place] [facility].
== END 2023-03-13 16:33 | disposition home or self-care (01) ==
PROVIDERS: Emergency Provider Physician Assistant
DX: M10.9 Gout, unspecified (principal); Z79.82 Long term (current) use of aspirin; Z79.84 Long term (current) use of oral hypoglycemic drugs; E11.9 Type 2 diabetes mellitus without complications; E78.5 Hyperlipidemia, unspecified; I10 Essential (primary) hypertension
CPT/HCPCS: 96372; 99284; J3301

== ENCOUNTER 2023-05-01 12:28 | Emergency (ER) | payer OTHER, SELFPAY ==
[2023-05-01 12:40] VITALS: BP 112/64; PULSE 78; RESP 16; TEMP 36.9; O2SAT 99; BMI 41.9
--- NOTE | 2023-05-01 14:54 | W.ED.EXTPRO ---
HPI - Extremity Problem General: Chief complaint: Extremity Problem,Nontraumatic Stated complaint: lt foot & ankle swollen & painful Source: patient Mode of arrival: wheelchair Limitations: no limitations History of Present Illness: Patient is a nice 58-year-old female presents to ED today with a complaint of gout to her left foot and ankle. Patient states she has a longstanding history of gout and states her pain today feels identical to previous flares. I saw her approximately 1.5 months ago for a flare to her right foot and ankle. She states she was treated with IM kenalog and 1.2 mg colchicine and states by the following morning her pain has significantly improved. We had also placed her on prednisone and indomethacin. Patient states she takes allopurinol daily and follows a strict gout diet . She has not had any injury or trauma. MD Complaint: extremity pain and joint pain Onset (ago): day(s) Pain Consistency: constant Location: left and lower extremity Quality: stabbing and sharp Radiation: none Relieving factors: nothing Exacerbating factors: range of motion, weight bearing and walking Associated symptoms: Reports no associated symptoms; Deny fever(s) or rash Context: history of gout Review of Systems Const: Denies: fever(s), chills, body aches, fatigue or malaise Musc: Reports: extremity pain (L foot), joint pain (L ankle), joint swelling (L ankle) and joint warmth; Denies: neck pain, back pain, extremity swelling or joint redness Skin/Breast: Denies: rash or erythema Neuro: Denies: numbness in extremities, weakness in extremities or sensory changes [facility], [facility] ED PFSH: Medical History Diabetes Generalized anxiety disorder Hearing loss Hidradenitis suppurativa Hyperlipidemia Hypertension Hyposmia Menopause syndrome Nasal septal deformity Nasal turbinate hypertrophy Obstructive sleep apnea Surgical History History of colonoscopy History of hand surgery Reattachment of the left middle finger and pinky History of hemorrhoidectomy History of left shoulder replacement (10/12/18) History of melanoma excision Left shoulder and right bicep regions History of nasal surgery History of tonsillectomy Family History Mother Hypertension Hypercholesterolemia Family history of thyroid problem CAD (coronary artery disease) Heart disease Sister Family history of thyroid problem Brother Colon cancer Denies family history of Diabetes Clotting disorder Chronic kidney disease (CKD) Bleeding disorder Stroke Social History Smoking and tobacco status: never smoked Alcohol intake: never Substance/Drug Use: never Marital status: Current occupational status: employed Physical Exam Const: COMMON NORMALS: no acute distress, patient oriented x3, no limitations, alert and well nourished GENERAL APPEARANCE: cooperative NUTRITIONAL APPEARANCE: obese Resp: COMMON NORMALS: normal respiratory effort and clear to auscultation bilaterally AUSCULTATION: clear to auscultation bilaterally Cardio: COMMON NORMALS: regular rate and regular rhythm RATE: regular rate RHYTHM: regular rhythm Extremity: COMMON NORMALS: capillary refill normal GENERAL: Yes normal exam except as noted LEFT LOWER EXTREMITY: Yes ankle joint and Yes foot & digits OTHER: pain throughout L ankle/proximal-lateral foot; some swelling/warmth noted throughout ankle; no erythema appreciated; no bony tenderness; sensation/cap refill/pulses normal Neuro: COMMON NORMALS: patient oriented x3, moves all extremities, no focal motor deficits and no sensory deficits noted SENSORIUM/ORIENTATION: Yes alert Skin: COMMON NORMALS: no rashes or lesions noted GENERAL SKIN EXAM: no rashes or lesions noted Course Vital Signs: Vital signs: Vital Signs Temperature 98.4 F 05/01/23 12:40 Pulse Rate 78 05/01/23 12:40 Respiratory Rate 16 05/01/23 12:40 Blood Pressure 112/64 05/01/23 12:40 Pulse Oximetry 99 05/01/23 12:40 Oxygen Delivery Me thod Room Air 05/01/23 12:40 MDM - Extremity (Nontraumatic) Medical Decision Making Patient states pain is identical to previous gout flares therefore she will be treated as such. Recommend she follow-up with her primary care provider due to her frequent flares to see if they can get better management of this and potentially avoid repeat ED visits. Patient is stable for discharge at this time. Discharge Plan Discharge Patient Disposition: Home Clinical Impression: Gout Qualifiers: Gout site: ankle Encounter type: initial encounter Chronicity: acute Laterality: left Condition: Stable Prescriptions: New prednisone 10 mg tablet 10 mg PO DAILY 10 Days Qty: 20 0RF Rx Instructions: Take 5 tabs on day 1-2, 4 tabs on day 3, 3 tabs on day 4, 2 tabs on day 5, and 1 tab on day 6 Continued indomethacin 50 mg capsule 50 mg PO TID Qty: 20 0RF Rx Instructions: administer with food or milk Held ibuprofen 800 mg tablet 800 mg PO TID PRN Hold Instructions: Resume on 05/08/23. Hold while taking indomethacin No Action atorvastatin 10 mg tablet 10 mg PO DAILY lisinopril-hydrochlorothiazide 20-25 mg tablet 1 tab PO DAILY tizanidine 4 mg tablet 4 mg PO ONCE PRN (Reason: muscle spasms) Rx Instructions: at bedtime metformin 1,000 mg tablet extended release 24hr 1,000 mg PO BID fenugreek seed extract 500 mg capsule PO biotin 1 mg tablet 1 mg PO DAILY apple cider vinegar 300 mg tablet 600 mg PO DAILY metronidazole [Flagyl] 500 mg tablet 500 mg PO BID Qty: 14 0RF doxycycline hyclate 100 mg tablet 100 mg PO BID Qty: 28 0RF oxybutynin chloride 5 mg tablet 5 mg PO DAILY Qty: 30 3RF Randolph Low Dose Aspirin 81 mg Tablet,Delayed Release (Dr/Ec) 81 mg PO DAILY colchicine 0.6 mg capsule 0.6 mg PO BID Qty: 30 0RF tramadol 50 mg tablet 50 mg PO TID PRN (Reason: pain) Qty: 10 0RF colchicine 0.6 mg tablet See Rx Instructions .ROUTE .COMPLEX Qty: 3 0RF Rx Instructions: take 2 tabs immediately, then take one tab 1hr later allopurinol 100 mg tablet 100 mg PO BID Qty: 30 1RF Discharge Orders: Discharge ED (Routine); Ordered 05/01/23 Ordered By: Arlene Carrillo Patient Instructions: Low Purine Diet (ED), Gout (ED) Activity Restrictions/Additional Instructions: Please follow-up with your primary care provider in regards to your frequent gout flares. Coding Level of Care Code ED [employer] for Monika Siddiqui
[2023-05-01] MEDS: colchicine 0.6 mg Tablet 1.2 MG PO (15:31)
[2023-05-01] MEDS: triamcinolone 40 mg/mL SDV IM (15:31)
[2023-05-01 16:11] VITALS: BP 112/64; PULSE 78; RESP 16; TEMP 36.9; O2SAT 99
== END 2023-05-01 16:15 | disposition home or self-care (01) ==
PROVIDERS: Emergency Provider Physician Assistant
DX: M10.9 Gout, unspecified (principal); Z79.82 Long term (current) use of aspirin; Z79.84 Long term (current) use of oral hypoglycemic drugs; E11.9 Type 2 diabetes mellitus without complications; E78.5 Hyperlipidemia, unspecified; I10 Essential (primary) hypertension
CPT/HCPCS: 96372; 99284; J3301

== ENCOUNTER 2023-07-17 10:33 | Emergency (ER) | payer OTHER, SELFPAY ==
[2023-07-17 10:46] VITALS: BP 136/88; PULSE 80; RESP 17; TEMP 36.7; O2SAT 99; BMI 41.5
--- NOTE | 2023-07-17 10:52 | XR_ITS ---
WS: [id number] Exam: XR ankle LT min 3V* [id number] Date/Time of Exam: 07/17/2023 11:23 AM Reason For Exam: pain Comparison 01/30/2023. No fracture or dislocation. Soft tissue calcification is noted along the posterior ankle mortise. Will ous calcification seen along the anterior lower tibia. IMPRESSION: 1. No fracture or dislocation. No other significant finding.
--- NOTE | 2023-07-17 11:45 | W.ED.EXTPRO ---
HPI - Extremity Problem General: Chief complaint: Extremity Problem,Nontraumatic Stated complaint: trouble walking Time Seen by Provider: 07/17/23 11:29 Source: patient Mode of arrival: ambulatory Limitations: no limitations History of Present Illness: 58-year-old female states she had some left ankle pain over the last 2 days. States pain sharp in nature rates it a 3 out of 10 she states she has had multiple gout flares in the past and feels like this is beginning of a gout flare. She states that Kenalog and Decadron usually worked the best for her. She states she is taken indomethacin before and does not like how makes her feel. She is on allopurinol at home. She denies any fevers denies any injuries Associated symptoms: Deny chest pain, fever(s) or rash Review of Systems Const: Denies: fever(s), chills, body aches or change in appetite ENMT: Denies: throat pain or dental pain Card: Denies: chest pain Resp: Denies: dyspnea GI: Denies: abdominal pain, nausea, vomiting or diarrhea Musc: Reports: extremity pain; Denies: neck pain or back pain Skin/Breast: Denies: rash Neuro: Denies: headache(s) PFSH ED PFSH: Medical History Diabetes Generalized anxiety disorder Hearing loss Hidradenitis suppurativa Hyperlipidemia Hypertension Hyposmia Menopause syndrome Nasal septal deformity Nasal turbinate hypertrophy Obstructive sleep apnea Surgical History History of colonoscopy History of hand surgery Reattachment of the left middle finger and pinky History of hemorrhoidectomy History of left shoulder replacement (10/12/18) History of melanoma excision Left shoulder and right bicep regions History of nasal surgery History of tonsillectomy Family History Mother Hypertension Hypercholesterolemia Family history of thyroid problem CAD (coronary artery disease) Heart disease Sister Family history of thyroid problem Brother Colon cancer Denies family history of Diabetes Clotting disorder Chronic kidney disease (CKD) Bleeding disorder Stroke Physical Exam Const: COMMON NORMALS: no acute distress and patient oriented x3 HENMT: COMMON NORMALS: atraumatic HEAD & SCALP: atraumatic Eye: COMMON NORMALS: conjunctivae normal CONJUNCTIVA: Yes conjunctivae normal Neck/C-Spine: COMMON NORMALS: supple Chest: COMMONS NORMALS: normal inspection of the chest Resp: COMMON NORMALS: normal respiratory effort GI: INSPECTION: Yes normal to inspection Extremity: NARRATIVE EXTREMITY EXAM: Slight tenderness over left ankle she has full range of motion no signs of joint Neuro: COMMON NORMALS: patient oriented x3 Psych: COMMON NORMALS: mental status grossly normal Course Vital Signs: Vital signs: Vital Signs Temperature 98.1 F 07/17/23 10:46 Pulse Rate 80 07/17/23 10:46 Respiratory Rate 17 07/17/23 10:46 Blood Pressure 136/88 07/17/23 10:46 Pulse Oximetry 99 07/17/23 10:46 Oxygen Delivery Me thod Room Air 07/17/23 10:46 MDM - Extremity (Nontraumatic) Medical Decision Making Patient presents here with ankle pain likely gout we will give her Decadron Kenalog shot here she is stable for discharge she will follow-up with PCP. All radiology interpretation(s) finalized by discharge Discharge Plan Discharge Patient Disposition: Home Clinical Impression: Gout Condition: Stable Prescriptions: No Action atorvastatin 10 mg tablet 10 mg PO DAILY lisinopril-hydrochlorothiazide 20-25 mg tablet 1 tab PO DAILY metformin 1,000 mg tablet extended release 24hr 1,000 mg PO BID fenugreek seed extract 500 mg capsule PO biotin 1 mg tablet 1 mg PO DAILY sulfamethoxazole-trimethoprim [Bactrim DS] 800-160 mg tablet 1 tab PO BID Qty: 20 0RF oxybutynin chloride 5 mg tablet 5 mg PO DAILY Qty: 30 3RF Randolph Low Dose Aspirin 81 mg Tablet,Delayed Release (Dr/Ec) 81 mg PO DAILY indomethacin 50 mg capsule 50 mg PO TID Qty: 20 0RF Rx Instructions: administer with food or milk allopurinol 100 mg tablet 100 mg PO BID Qty: 30 1RF Discharge Orders: Discharge ED (Routine); Ordered 07/17/23 Ordered By: Willard Stafford Discharge Diet: Advance as tolerated Discharge Activity: Resume usual activity Patient Instructions: Gout (ED) Coding Level of Care Code ED [employer] for Monika Siddiqui
[2023-07-17] MEDS: triamcinolone 40 mg/mL SDV 80 MG IM (12:04)
[2023-07-17] MEDS: dexamethasone 10 mg/mL INJ IM (12:04)
== END 2023-07-17 12:17 | disposition home or self-care (01) ==
PROVIDERS: Emergency Provider Emergency Medicine
DX: M10.9 Gout, unspecified (principal); Z79.84 Long term (current) use of oral hypoglycemic drugs; Z79.82 Long term (current) use of aspirin; E11.9 Type 2 diabetes mellitus without complications; E78.5 Hyperlipidemia, unspecified; I10 Essential (primary) hypertension
CPT/HCPCS: 73610; 96372; 99284; J1100; J3301

== ENCOUNTER 2023-08-30 08:25 | Emergency (ER) | payer OTHER, SELFPAY ==
[2023-08-30 08:37] VITALS: BP 145/82; PULSE 82; TEMP 36.8; O2SAT 99; BMI 41.5
--- NOTE | 2023-08-30 09:06 | W.ED.EXTPRO ---
HPI - Extremity Problem General: Chief complaint: Extremity Problem,Nontraumatic Stated complaint: gout in left foot Time Seen by Provider: 08/30/23 08:27 History of Present Illness: 58-year-old female presents emergency department with complaints of left ankle pain. She states she has a longstanding history of gout and states that she is having the start of a gout flare. She states she normally gets it in her left ankle but will also go to her right ankle. She states that she does take allopurinol but is very aware when her gout starts to flare and comes to the emergency department or her primary care provider to be treated to shorten the duration of the flare. She states present she has left ankle pain that is a 2 out of 10. She denies numbness or tingling to the extremity. She denies known injury or trauma. 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 Review of Systems General: Reports: 10 or more systems reviewed and unremarkable except in HPI and below Musc: Reports: joint pain (Left ankle pain) [facility] ED PFSH: Medical History Diabetes Generalized anxiety disorder Hearing loss Hidradenitis suppurativa Hyperlipidemia Hypertension Hyposmia Menopause syndrome Nasal septal deformity Nasal turbinate hypertrophy Obstructive sleep apnea Surgical History History of colonoscopy History of hand surgery Reattachment of the left middle finger and pinky History of hemorrhoidectomy History of left shoulder replacement (10/12/18) History of melanoma excision Left shoulder and right bicep regions History of nasal surgery History of tonsillectomy Family History Mother Hypertension Hypercholesterolemia Family history of thyroid problem CAD (coronary artery disease) Heart disease Sister Family history of thyroid problem Brother Colon cancer Denies family history of Diabetes Clotting disorder Chronic kidney disease (CKD) Bleeding disorder Stroke Physical Exam Const: COMMON NORMALS: no acute distress, patient oriented x3 and alert HENMT: COMMON NORMALS: normocephalic and Normal nasal mucous membranes and turbinates present HEAD & SCALP: normocephalic NOSE: Normal nasal mucous membranes and turbinates present Eye: COMMON NORMALS: Equal, round and reactive pupils present and EOMs intact bilaterally PUPIL: Yes Equal, round and reactive pupils present Neck/C-Spine: COMMON NORMALS: full ROM and supple Resp: COMMON NORMALS: normal respiratory effort and clear to auscultation bilaterally AUSCULTATION: clear to auscultation bilaterally Cardio: COMMON NORMALS: regular rate, regular rhythm, S1 normal heart sound present, S2 normal heart sound present and Peripheral pulses 2+ throughout RATE: regular rate RHYTHM: regular rhythm HEART SOUNDS: S1 normal heart sound present and S2 normal heart sound present PERIPHERAL PULSES: Peripheral pulses 2+ throughout GI: COMMON NORMALS: Normal to inspection, nondistended, normoactive bowel sounds present, Soft to palpation and non-tender PALPATION: Yes Soft to palpation Back/Pelvis: COMMON NORMALS: thoracic and lumbar spine normal to inspection and no thoracic nor lumbar tenderness Extremity: LEFT LOWER EXTREMITY: Yes ankle joint Left ankle: Yes palpation (Tenderness noted to the lateral aspect) Neuro: COMMON NORMALS: patient oriented x3 SENSORIUM/ORIENTATION: Yes alert Psych: COMMON NORMALS: mental status grossly normal, Normal thought process present and cooperative THOUGHT PROCESS: Normal thought process present Skin: COMMON NORMALS: no rashes or lesions noted GENERAL SKIN EXAM: no rashes or lesions noted Course Vital Signs: Vital signs: Vital Signs Temperature 98.2 F 08/30/23 08:37 Pulse Rate 79 08/30/23 09:35 Respiratory Rate 14 08/30/23 09:35 Blood Pressure 122/94 08/30/23 09:35 Pulse Oximetry 97 08/30/23 09:35 Oxygen Delivery Me thod Room Air 08/30/23 08:37 MDM - Extremity (Nontraumatic) Medical Decision Making Physical exam completed and documented, given the patient's previous history I will provide her Solu-Medrol corticosteroid and Toradol intramuscular injection. I encouraged her to continue taking her allopurinol and indomethacin and to follow-up with her primary care provider as needed. I did review the patient's previous medical records for this evaluation. Medical Records I reviewed the patient's medical records. No radiology studies performed this visit Discharge Plan Discharge Patient Disposition: Home Clinical Impression: Gout attack Condition: Stable Prescriptions: No Action atorvastatin 10 mg tablet 10 mg PO DAILY lisinopril-hydrochlorothiazide 20-25 mg tablet 1 tab PO DAILY metformin 1,000 mg tablet extended release 24hr 1,000 mg PO BID biotin 1 mg tablet 1 mg PO DAILY oxybutynin chloride 5 mg tablet 5 mg PO DAILY Qty: 30 3RF aspirin [Randolph Low Dose Aspirin] 81 mg Tablet,Delayed Release (Dr/Ec) 81 mg PO DAILY indomethacin 50 mg capsule 50 mg PO TID Qty: 20 0RF Rx Instructions: administer with food or milk [id number] 100 mg-150 mg- 50 mg-150 mg Capsule 1 cap PO DAILY allopurinol 100 mg tablet 100 mg PO BID Qty: 30 1RF Discharge Orders: Discharge ED (Routine); Ordered 08/30/23 Ordered By: Brandon Savage Referrals: OUT OF AREA PROVIDERS, [Primary Care Provider] - Discharge Diet: Advance as tolerated Discharge Activity: Resume usual activity Patient Instructions: Low Purine Diet (ED), Gout (ED) Coding Level of Care Code ED [employer] for Monika Siddiqui
[2023-08-30] MEDS: ketorolac 60 mg/2 mL INJ IM (09:22)
[2023-08-30] MEDS: methylPREDNISolone sod succ 60 MG in water for injection-sterile 0.96 ML 11.52 MG IM (09:23)
[2023-08-30 09:35] VITALS: BP 122/94; PULSE 79; RESP 14; O2SAT 97
== END 2023-08-30 09:45 | disposition home or self-care (01) ==
PROVIDERS: Emergency Provider Internal Medicine
DX: M10.9 Gout, unspecified (principal); Z79.82 Long term (current) use of aspirin; Z79.84 Long term (current) use of oral hypoglycemic drugs; E11.9 Type 2 diabetes mellitus without complications; E78.5 Hyperlipidemia, unspecified; I10 Essential (primary) hypertension
CPT/HCPCS: 96372; 99284; J1885; J2930

== ENCOUNTER 2024-11-25 14:26 | Emergency (ER) | payer OTHER, SELFPAY ==
[2024-11-25 14:36] VITALS: BP 136/54; PULSE 83; RESP 18; TEMP 36.6; O2SAT 95
--- NOTE | 2024-11-25 17:41 | XRR_ITS ---
PROCEDURE INFORMATION: Exam: XR Chest Exam date and time: 11/25/2024 5:58 PM Age: 59 years old Clinical indication: Cough and shortness of breath; Patient HX: Cough with congestion and SOB; Additional info: Prod cough, pleuritic pain TECHNIQUE: Imaging protocol: Radiologic exam of the chest. Views: 2 views. COMPARISON: CT abdomen pelvis w con* [id number] 06/21/2020 3:04 PM FINDINGS: Lungs: Low lung volumes with basilar atelectasis and compressive changes limits evaluation of interstitial and basilar airspace disease. No definitive pulmonary consolidation. Pleural spaces: No pleural effusion or pneumothorax. Heart/Mediastinum: Heart size is within normal limits. Bones/joints: No acute osseous abnormalities are seen. XR/XR chest 2V* [id number] IMPRESSION: Low lung volumes with basilar atelectasis and compressive changes limits evaluation of interstitial and basilar airspace disease. No definitive acute cardiopulmonary disease.
--- NOTE | 2024-11-25 17:46 | ED_ITS ---
Documented by User: OLIVIA Booker 11/25/24 19:55 HPI - URI/Sore Throat 2 General: Chief Complaint: Upper Respiratory Infection Stated Complaint: rt flank pain Time Seen by Provider: 11/25/24 17:34 Source: patient Mode of arrival: ambulatory Limitations: no limitations History of Present Illness: Patient is a 59-year-old female who presents the emergency department complaining of right lateral chest wall pain for the past 4 days. She states that prior to onset of pain, she did develop a cough that has slowly become more and more productive. She has no history of asthma or COPD. Reports that the pain is directly exacerbated by deep breathing or coughing, and is reproducible by palpation. Denies any fever or other upper respiratory symptoms. 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 She does not have a history of kidney stones, is not having any blood in her urine or dysuria. She denies feeling short of breath, just stating that sometimes she cannot take a deep breath secondary to the pain. Does not report taking any medications for the pain. States primarily it is to the right lateral ribs, but does extend somewhat into her back. No cardiac history reported. No anterior chest pain. MD elicited complaint: cough and other (Right lateral chest wall pain) Onset (ago): day(s) Consistency: constant Severity: severe Exacerbating factors: deep breaths and other (Coughing/palpation) Relieving factors: rest Associated symptoms: Deny abdominal pain, chills, chest pain, diarrhea, ear or mastoid pain, fever(s), headache(s), nausea or vomiting Treatments prior to arrival: none Related Data Home Medications Medication Instructions Recorded Confirmed atorvastatin 10 mg tablet 10 mg PO DAILY 11/14/19 11/25/24 lisinopril 20 1 tab PO DAILY 11/14/19 11/25/24 mg-hydrochlorothiazide 25 mg tablet aspirin 81 mg tablet,delayed 81 mg PO DAILY 06/21/20 11/25/24 release (Randolph Low Dose Aspirin) biotin 1 mg tablet 1 mg PO DAILY 10/04/21 11/25/24 metformin 1,000 mg tablet,extended 1,000 mg PO BID 10/04/21 11/25/24 release 24hr (osmotic) turmeric 100 mg-edie 150 1 cap PO DAILY 07/17/23 11/25/24 mg-olive 50 mg-oreg 150 mg-capryl capsule Previous Rx's Medication Instructions Recorded oxybutynin chloride 5 mg tablet 5 mg PO DAILY #30 tabs 01/14/22 allopurinol 100 mg tablet 100 mg PO BID #30 tabs 03/13/23 indomethacin 50 mg capsule 50 mg PO TID #20 caps 05/01/23 azithromycin 500 mg tablet 500 mg PO DAILY 5 days #5 tabs 11/25/24 Allergies Allergy/AdvReac Type Severity Reaction Status Date / Time latex Allergy ALGY-Rash Verified 11/25/24 14:43 codeine AdvReac Mild ADR-Nausea Verified 11/25/24 14:43 Review of Systems 2 General: Reports: 10 or more systems reviewed and unremarkable except in HPI and below Const: Denies: fever(s), chills or fatigue Eyes: Denies: change in vision ENMT: Denies: throat pain, ear or mastoid pain or nasal discharge Card: Denies: chest pain, palpitations, swelling of feet/ankles or lightheadedness Resp: Reports: productive cough and pain on inspiration; Denies: dyspnea or wheezing GI: Denies: abdominal pain, nausea, vomiting, diarrhea or constipation : Denies: flank pain, difficulty voiding, dysuria, urinary frequency or hematuria Musc: Reports: back pain; Denies: neck pain or joint pain Skin/Breast: Denies: rash Neuro: Denies: headache(s), numbness in extremities or weakness in extremities PFSH ED 2 PFSH: Medical History Obstructive sleep apnea Generalized anxiety disorder Hyperlipidemia Diabetes Hypertension Menopause syndrome Hidradenitis suppurativa Hearing loss Hyposmia Nasal turbinate hypertrophy Nasal septal deformity Surgical History History of tonsillectomy History of nasal surgery History of colonoscopy History of left shoulder replacement (10/12/18) History of melanoma excision Left shoulder and right bicep regions History of hand surgery Reattachment of the left middle finger and pinky History of hemorrhoidectomy Family History Mother Hypertension Hypercholesterolemia Family history of thyroid problem CAD (coronary artery disease) Heart disease Sister Family history of thyroid problem Brother Colon cancer Denies family history of Diabetes Clotting disorder Chronic kidney disease (CKD) Bleeding disorder Stroke Social History Smoking and tobacco/nicotine status: never used tobacco/nicotine Physical Exam 2 Const: COMMON NORMALS: no acute distress and no limitations GENERAL APPEARANCE: cooperative, comfortable and well developed NUTRITIONAL APPEARANCE: obese ORIENTATION/CONSCIOUSNESS: Yes awake OTHER: No respiratory distress HENMT: COMMON NORMALS: normocephalic, atraumatic, hearing grossly normal bilaterally and moist oral mucous membranes HEAD & SCALP: normocephalic and atraumatic Eye: COMMON NORMALS: Equal, round and reactive pupils present, EOMs intact bilaterally and conjunctivae normal CONJUNCTIVA: Yes conjunctivae normal P UPIL: Yes Equal, round and reactive pupils present Neck/C-Spine: COMMON NORMALS: full ROM, supple and no JVD Resp: COMMON NORMALS: normal respiratory effort, No retractions, No use of accessory muscles and clear to auscultation bilaterally AUSCULTATION: clear to auscultation bilaterally Cardio: COMMON NORMALS: no JVD, regular rate, regular rhythm, No clicks present (Cardio), No murmurs present (Cardio) and No rub (Cardio) RATE: r egular rate RHYTHM: regular rhythm GI: COMMON NORMALS: Normal to inspection, nondistended, normoactive bowel sounds present, Soft to palpation and non-tender AUSCULTATION: Yes normoactive bowel sounds PALPATION: Yes Soft to palpation RECTAL EXAM: d eferred Back/Pelvis: COMMON NORMALS: thoracic and lumbar spine normal to inspection, no thoracic nor lumbar tenderness and thoraco-lumbar ROM normal OTHER: Easily reproducible tenderness to palpation to right lateral lower rib cage. No step-off deformity or bruising. No crepitus. No other signs of trauma. Extremity: COMMON NORMALS: normal to inspection, full ROM, capillary refill normal and no pedal edema Skin: COMMON NORMALS: no rashes or lesions noted GENERAL SKIN EXAM: no rashes or lesions noted Course 2 Vital Signs: Vital signs: Vital Signs Temperature 97.9 F 11/25/24 14:36 Pulse Rate 81 11/25/24 20:17 Respiratory Rate 16 11/25/24 20:17 Blood Pressure 140/72 11/25/24 20:17 Pulse Oximetry 96 11/25/24 20:17 Oxygen Delivery Me thod Room Air 11/25/24 19:00 MDM - URI/Sore Throat Medical Decision Making Patient presented with right lateral chest wall pain, it was easily reproducible at time of examination with no signs of trauma or concerns for underlying fracture. Chest x-ray showing signs of atelectasis and low lung volumes, I suspect this is chronic as there are no signs of acute focal consolidation though limited exam. I did not appreciate any adventitious lung sounds on exam. Overall appeared stable and vitals have been normal throughout ED stay. Lab work was normal as there are no signs of infection here, she is a diabetic. Treated with a shot of Toradol, she notes improvement of her pain stating that coughing does not elicit as severe of right sided pain. Urinalysis obtained to check for blood, there were no signs of this thus I do not suspect nephrologic etiology such as stone. Swab for flu and COVID were negative. With her noted improvement of pain after Toradol here, lack of acute cardiopulmonary findings, and my low suspicion for any cardiac etiology, will have her treat for acute costochondritis by taking NSAIDs, and we will start her on a short course of Z- Yefri in case there is an atypical infection causing the increase in cough, she did note increased production with no history of asthma or COPD. She is comfortable with discharging home, I did give her strict return precautions such as any shortness of breath or worsening of pain she is to return for further evaluation. Family in the room also agrees with this plan and he is requesting she be given a shot of Rocephin here in the ED. Lab Data 11/25/24 18:20 11/25/24 18:20 Radiology Impressions Chest X-Ray 11/25/24 17:41 IMPRESSION: Low lung volumes with basilar atelectasis and compressive changes limits evaluation of interstitial and basilar airspace disease. No definitive acute cardiopulmonary disease. Laboratory Results WBC 9.09 10^3/uL (3.29-11.43) 11/25/24 18:20 RBC 4.20 10^6/uL (3.85-5.65) 11/25/24 18:20 Hgb 12.90 g/dL (11.27-16.99) 11/25/24 18:20 Hct 39.8 % (36-47) 11/25/24 18:20 MCV 94.8 fl (85-98) 11/25/24 18:20 MCH 30.7 pg (27-33) 11/25/24 18:20 MCHC 32.4 g/dL (30-55) 11/25/24 18:20 RDW 13.2 % (12.1-15.1) 11/25/24 18:20 Plt Count 285 10^3/cmm (157-399) 11/25/24 18:20 MPV 10.0 fL (7.4-10.4) 11/25/24 18:20 Neut % (Auto) 44.9 % 11/25/24 18:20 Lymph % (Auto) 43.9 % 11/25/24 18:20 [place] % (Auto) 9.1 % 11/25/24 18:20 Eos % (Auto) 1.5 % 11/25/24 18:20 Baso % (Auto) 0.4 % 11/25/24 18:20 Neut # (Auto) 4.07 10^3/uL (1.8-7.7) 11/25/24 18:20 Lymph # (Auto) 4.0 10^3/uL (0.8-4.8) 11/25/24 18:20 [place] # (Auto) 0.8 10^3/uL (0.2-0.9) 11/25/24 18:20 Eos # (Auto) 0.1 10^3/uL (0.0-0.8) 11/25/24 18:20 Baso # (Auto) 0.0 10^3/uL (0.0-0.1) 11/25/24 18:20 Nucleated RBC % (auto) 0 % 11/25/24 18:20 Nucleated RBCs # 0.0 /100WBC 11/25/24 18:20 Sodium 141 mmol/L (136-145) 11/25/24 18:20 Potassium 4.1 mmol/L (3.5-5.1) 11/25/24 18:20 Chloride 101 mmol/L (98-107) 11/25/24 18:20 Carbon Dioxide 30 mmol/L (22-29) H 11/25/24 18:20 Anion Gap 14.1 (5-19) 11/25/24 18:20 BUN 19 mg/dL (8-23) 11/25/24 18:20 Creatinine 0.7 mg/dL (0.5-0.9) 11/25/24 18:20 GFR Calculation 85.4 mL/min (90-130) L 11/25/24 18:20 Glucose 133 mg/dL (65-115) H 11/25/24 18:20 Calculated Osmolality 296 mOsm/kg (285-295) H 11/25/24 18:20 Calcium 10.2 mg/dL (8.5-10.5) 11/25/24 18:20 Total Bilirubin 0.3 mg/dL (0.15-1.2) 11/25/24 18:20 AST 21 U/L (0-32) 11/25/24 18:20 ALT 29 U/L (0-33) 11/25/24 18:20 Alkaline Phosphatase 100 U/L (35-105) 11/25/24 18:20 Total Protein 7.4 g/dL (6.6-8.7) 11/25/24 18:20 Albumin 4.3 g/dL (3.5-5.2) 11/25/24 18:20 Globulin 3.1 g/dL (1.3-4.6) 11/25/24 18:20 Urine Color Yellow (Yellow) 11/25/24 18: Urine Appearance Cloudy (CLEAR) A 11/25/24 18: Urine pH 8.0 (5-7) A 11/25/24 18: Ur Specific [place] 1.023 (1.005-1.030) 11/25/24 18: Urine Protein Negative (Negative) 11/25/24 18: Urine Glucose (UA) Negative (Normal) 11/25/24 18: Urine Ketones Negative (Negative) 11/25/24 18: Urine Blood Negative (Negative) 11/25/24: Urine Nitrate Negative (Negative) 11/25/24 18: Urine Bilirubin Negative (Negative) 11/25/24 18: Urine Urobilinogen 1.0 mg/dL (Negative) 11/25/24 18: Ur Leukocyte Esterase Negative (Negative) 11/25/24 18: Urine RBC 0-2 /hpf (0-2) 01/24/25 18:29 Urine WBC 0-5 /hpf (0-5) 11/25/24 18:29 Ur Squamous Epith Cells 0-5 /hpf (0-5) 11/25/24 18:29 Amorphous Sediment Not Reportable 11/25/24 18:29 Urine Bacteria Trace /hpf (NONE) 11/25/24 18:29 Hyaline Casts 0-4 /lpf H 11/25/24 18:29 Coronavirus (PCR) Negative (Negative) 11/25/24 18:25 Influenza A (PCR) Negative (Negative) 11/25/24 18:25 Influenza Type B (PCR) Negative (Negative) 11/25/24 18:25 RSV (PCR) Negative (Negative) 11/25/24 18:25 All radiology interpretation(s) finalized by discharge Discharge Plan Discharge Patient Disposition: Home Clinical Impression: Acute costochondritis Acute bronchitis Qualifiers: Bronchitis organism: unspecified organism Qualified Code(s): J20.9 - Acute bronchitis, unspecified Condition: Stable Prescriptions: New azithromycin 500 mg tablet 500 mg PO DAILY 5 Days Qty: 5 0RF No Action atorvastatin 10 mg tablet 10 mg PO DAILY lisinopril-hydrochlorothiazide 20-25 mg tablet 1 tab PO DAILY metformin 1,000 mg tablet extended release 24hr 1,000 mg PO BID biotin 1 mg tablet 1 mg PO DAILY oxybutynin chloride 5 mg tablet 5 mg PO DAILY Qty: 30 3RF aspirin [Randolph Low Dose Aspirin] 81 mg Tablet,Delayed Release (Dr/Ec) 81 mg PO DAILY indomethacin 50 mg capsule 50 mg PO TID Qty: 20 0RF Rx Instructions: administer with food or milk [id number]-oreg-capry 100 mg-150 mg- 50 mg-150 mg Capsule 1 cap PO DAILY allopurinol 100 mg tablet 100 mg PO BID Qty: 30 1RF Discharge Orders: Discharge ED (Routine); Ordered 11/25/24 Ordered By: Uriel Calderón Patient Instructions: Costochondritis (ED), Acute Bronchitis (ED) Activity Restrictions/Additional Instructions: Please see attached patient instructions for further education. Please take ibuprofen for your side pain, return if your pain worsens or you have any other concerning symptom onset. Take Z-Yefri as prescribed. Continue monitoring your blood sugars at home and taking other medications as prescribed. Coding Level of Care Code ED [employer] for [employer] Documented by User: Ahmet Pimentel DO 11/26/24 06:20 HPI - URI/Sore Throat 2 General: Chief Complaint: Upper Respiratory Infection Stated Complaint: rt flank pain Time Seen by Provider: 11/25/24 17:34 Related Data Home Medications Medication Instructions Recorded Confirmed atorvastatin 10 mg tablet 10 mg PO DAILY 11/14/19 11/25/24 lisinopril 20 1 tab PO DAILY 11/14/19 11/25/24 mg-hydrochlorothiazide 25 mg tablet aspirin 81 mg tablet,delayed 81 mg PO DAILY 06/21/20 11/25/24 release (Randolph Low Dose Aspirin) biotin 1 mg tablet 1 mg PO DAILY 10/04/21 11/25/24 metformin 1,000 mg tablet,extended 1,000 mg PO BID 10/04/21 11/25/24 release 24hr (osmotic) turmeric 100 mg-edie 150 1 cap PO DAILY 07/17/23 11/25/24 mg-olive 50 mg-oreg 150 mg-capryl capsule Previous Rx's Medication Instructions Recorded oxybutynin chloride 5 mg tablet 5 mg PO DAILY #30 tabs 01/14/22 allopurinol 100 mg tablet 100 mg PO BID #30 tabs 03/13/23 indomethacin 50 mg capsule 50 mg PO TID #20 caps 05/01/23 azithromycin 500 mg tablet 500 mg PO DAILY 5 days #5 tabs 11/25/24 Allergies Allergy/AdvReac Type Severity Reaction Status Date / Time latex Allergy ALGY-Rash Verified 11/25/24 14:43 codeine AdvReac Mild ADR-Nausea Verified 11/25/24 14:43 PFSH ED 2 PFSH: Medical History Obstructive sleep apnea Generalized anxiety disorder Hyperlipidemia Diabetes Hypertension Menopause syndrome Hidradenitis suppurativa Hearing loss Hyposmia Nasal turbinate hypertrophy Nasal septal deformity Surgical History History of tonsillectomy History of nasal surgery History of colonoscopy History of left shoulder replacement (10/12/18) History of melanoma excision Left shoulder and right bicep regions History of hand surgery Reattachment of the left middle finger and pinky History of hemorrhoidectomy Family History Mother Hypertension Hypercholesterolemia Family history of thyroid problem CAD (coronary artery disease) Heart disease Sister Family history of thyroid problem Brother Colon cancer Denies family history of Diabetes Clotting disorder Chronic kidney disease (CKD) Bleeding disorder Stroke Social History Smoking and tobacco/nicotine status: never used tobacco/nicotine Course 2 Vital Signs: Vital signs: Vital Signs Temperature 97.9 F 11/25/24 14:36 Pulse Rate 81 11/25/24 20:17 Respiratory Rate 16 11/25/24 20:17 Blood Pressure 140/72 11/25/24 20:17 Pulse Oximetry 96 11/25/24 20:17 Oxygen Delivery Me thod Room Air 11/25/24 19:00 MDM - URI/Sore Throat Medical Decision Making Patient presented with right lateral chest wall pain, it was easily reproducible at time of examination with no signs of trauma or concerns for underlying fracture. Chest x-ray showing signs of atelectasis and low lung volumes, I suspect this is chronic as there are no signs of acute focal consolidation though limited exam. I did not appreciate any adventitious lung sounds on exam. Overall appeared stable and vitals have been normal throughout ED stay. Lab work was normal as there are no signs of infection here, she is a diabetic. Treated with a shot of Toradol, she notes improvement of her pain stating that coughing does not elicit as severe of right sided pain. Urinalysis obtained to check for blood, there were no signs of this thus I do not suspect nephrologic etiology such as stone. Swab for flu and COVID were negative. With her noted improvement of pain after Toradol here, lack of acute cardiopulmonary findings, and my low suspicion for any cardiac etiology, will have her treat for acute costochondritis by taking NSAIDs, and we will start her on a short course of Z- Yefri in case there is an atypical infection causing the increase in cough, she did note increased production with no history of asthma or COPD. She is comfortable with discharging home, I did give her strict return precautions such as any shortness of breath or worsening of pain she is to return for further evaluation. Family in the room also agrees with this plan and he is requesting she be given a shot of Rocephin here in the ED. Chart reviewed Lab Data 11/25/24 18:20 11/25/24 18:20 Radiology Impressions Chest X-Ray 11/25/24 17:41 IMPRESSION: Low lung volumes with basilar atelectasis and compressive changes limits evaluation of interstitial and basilar airspace disease. No definitive acute cardiopulmonary disease. Laboratory Results WBC 9.09 10^3/uL (3.29-11.43) 11/25/24 18:20 RBC 4.20 10^6/uL (3.85-5.65) 11/25/24 18:20 Hgb 12.90 g/dL (11.27-16.99) 11/25/24 18:20 Hct 39.8 % (36-47) 11/25/24 18:20 MCV 94.8 fl (85-98) 11/25/24 18:20 MCH 30.7 pg (27-33) 11/25/24 18:20 MCHC 32.4 g/dL (30-55) 11/25/24 18:20 RDW 13.2 % (12.1-15.1) 11/25/24 18:20 Plt Count 285 10^3/cmm (157-399) 11/25/24 18:20 MPV 10.0 fL (7.4-10.4) 11/25/24 18:20 Neut % (Auto) 44.9 % 11/25/24 18:20 Lymph % (Auto) 43.9 % 11/25/24 18:20 [place] % (Auto) 9.1 % 11/25/24 18:20 Eos % (Auto) 1.5 % 11/25/24 18:20 Baso % (Auto) 0.4 % 11/25/24 18:20 Neut # (Auto) 4.07 10^3/uL (1.8-7.7) 11/25/24 18:20 Lymph # (Auto) 4.0 10^3/uL (0.8-4.8) 11/25/24 18:20 [place] # (Auto) 0.8 10^3/uL (0.2-0.9) 11/25/24 18:20 Eos # (Auto) 0.1 10^3/uL (0.0-0.8) 11/25/24 18:20 Baso # (Auto) 0.0 10^3/uL (0.0-0.1) 11/25/24 18:20 Nucleated RBC % (auto) 0 % 11/25/24 18:20 Nucleated RBCs # 0.0 /100WBC 11/25/24 18:20 Sodium 141 mmol/L (136-145) 11/25/24 18:20 Potassium 4.1 mmol/L (3.5-5.1) 11/25/24 18:20 Chloride 101 mmol/L (98-107) 11/25/24 18:20 Carbon Dioxide 30 mmol/L (22-29) H 11/25/24 18:20 Anion Gap 14.1 (5-19) 11/25/24 18:20 BUN 19 mg/dL (8-23) 11/25/24 18:20 Creatinine 0.7 mg/dL (0.5-0.9) 11/25/24 18:20 GFR Calculation 85.4 mL/min (90-130) L 11/25/24 18:20 Glucose 133 mg/dL (65-115) H 11/25/24 18:20 Calculated Osmolality 296 mOsm/kg (285-295) H 11/25/24 18:20 Calcium 10.2 mg/dL (8.5-10.5) 11/25/24 18:20 Total Bilirubin 0.3 mg/dL (0.15-1.2) 11/25/24 18:20 AST 21 U/L (0-32) 11/25/24 18:20 ALT 29 U/L (0-33) 11/25/24 18:20 Alkaline Phosphatase 100 U/L (35-105) 11/25/24 18:20 Total Protein 7.4 g/dL (6.6-8.7) 11/25/24 18:20 Albumin 4.3 g/dL (3.5-5.2) 11/25/24 18:20 Globulin 3.1 g/dL (1.3-4.6) 11/25/24 18:20 Urine Color Yellow (Yellow) 11/25/24 18: Urine Appearance Cloudy (CLEAR) A 11/25/24 18: Urine pH 8.0 (5-7) A 11/25/24 18: Ur Specific [place] 1.023 (1.005-1.030) 11/25/24 18: Urine Protein Negative (Negative) 11/25/24 18: Urine Glucose (UA) Negative (Normal) 11/25/24 18: Urine Ketones Negative (Negative) 11/25/24 18: Urine Blood Negative (Negative) 11/25/24 18: Urine Nitrate Negative (Negative) 11/25/24 18: Urine Bilirubin Negative (Negative) 11/25/24 18: Urine Urobilinogen 1.0 mg/dL (Negative) 11/25/24 18: Ur Leukocyte Esterase Negative (Negative) 11/25/24 18: Urine RBC 0-2 /hpf (0-2) 11/25/24 18: Urine WBC 0-5 /hpf (0-5) 11/25/24 18: Ur Squamous Epith Cells 0-5 /hpf (0-5) 11/25/24 18: Amorphous Sediment Not Reportable 11/25/24 18: Urine Bacteria Trace /hpf (NONE) 11/25/24 18: Hyaline Casts 0-4 /lpf H 11/25/24 18:29 Coronavirus (PCR) Negative (Negative) 11/25/24 18: Influenza A (PCR) Negative (Negative) 11/25/24 18: Influenza Type B (PCR) Negative (Negative) 11/25/24 18: RSV (PCR) Negative (Negative) 11/25/24 18: Discharge Plan Discharge Patient Disposition: Home Clinical Impression: Acute costochondritis Acute bronchitis Qualifiers: Bronchitis organism: unspecified organism Qualified Code(s): J20.9 - Acute bronchitis, unspecified Condition: Stable Prescriptions: New azithromycin 500 mg tablet 500 mg PO DAILY 5 Days Qty: 5 0RF No Action atorvastatin 10 mg tablet 10 mg PO DAILY lisinopril-hydrochlorothiazide 20-25 mg tablet 1 tab PO DAILY metformin 1,000 mg tablet extended release 24hr 1,000 mg PO BID biotin 1 mg tablet 1 mg PO DAILY oxybutynin chloride 5 mg tablet 5 mg PO DAILY Qty: 30 3RF aspirin [Randolph Low Dose Aspirin] 81 mg Tablet,Delayed Release (Dr/Ec) 81 mg PO DAILY indomethacin 50 mg capsule 50 mg PO TID Qty: 20 0RF Rx Instructions: administer with food or milk [id number]-oreg-capry 100 mg-150 mg- 50 mg-150 mg Capsule 1 cap PO DAILY allopurinol 100 mg tablet 100 mg PO BID Qty: 30 1RF Discharge Orders: Discharge ED (Routine); Ordered 11/25/24 Ordered By: Uriel Calderón Patient Instructions: Costochondritis (ED), Acute Bronchitis (ED) Activity Restrictions/Additional Instructions: Please see attached patient instructions for further education. Please take ibuprofen for your side pain, return if your pain worsens or you have any other concerning symptom onset. Take Z-Yefri as prescribed. Continue monitoring your blood sugars at home and taking other medications as prescribed. Coding Level of Care Code ED [employer] for Monika Siddiqui
[2024-11-25] MEDS: ketorolac 60 mg/2 mL INJ IM (18:28)
[2024-11-25 18:36] LABS: Basophils % 0.4 %; Eosinophils # 0.1 10^3/uL (0.0-0.8); Eosinophils % 1.5 %; Hematocrit 39.8 % (36-47); Lymphocytes % 43.9 %; Mean Corpuscular HGB Conc 32.4 g/dL (30-55); Mean Corpuscular Hemoglobin 30.7 pg (27-33); Mean Corpuscular Volume 94.8 fl (85-98); Monocytes # 0.8 10^3/uL (0.2-0.9); Monocytes % 9.1 %; Neutrophils # 4.07 10^3/uL (1.8-7.7); Neutrophils % 44.9 %; Nucleated Red Blood Cells % 0 %; Platelet Count 285 10^3/cmm (157-399); Red Cell Distribution Width 13.2 % (12.1-15.1); White Blood Count 9.09 10^3/uL (3.29-11.43)
[2024-11-25 18:53] LABS: Bilirubin Urine Negative (Negative); Blood Urine Negative (Negative); Glucose Urine UA Negative (Normal); Ketones Urine Negative (Negative); Leukocyte Esterase Urine Negative (Negative); Nitrate Urine Negative (Negative); Protein Urine Negative (Negative); Specific Gravity, Urine 1.023 (1.005-1.030); Urine Appearance Cloudy (CLEAR); Urine Color Yellow (Yellow)
[2024-11-25 18:56] LABS: Alanine Aminotransferase 29 U/L (0-33); Albumin Level 4.3 g/dL (3.5-5.2); Alkaline Phosphatase 100 U/L (35-105); Anion Gap 14.1 (5-19); Aspartate Amino Transferase 21 U/L (0-32); Blood Urea Nitrogen 19 mg/dL (8-23); Calcium 10.2 mg/dL (8.5-10.5); Carbon Dioxide 30 mmol/L (22-29); Chloride 101 mmol/L (98-107); Creatinine Clr Calc Pharmacy 97.4462; Globulin 3.1 g/dL (1.3-4.6); Glomerular Filtration Rate 85.4 mL/min (90-130); Glucose 133 mg/dL (65-115); Osmolality Calculated 296 mOsm/kg (285-295); Potassium 4.1 mmol/L (3.5-5.1); Sodium 141 mmol/L (136-145); Total Bilirubin 0.3 mg/dL (0.15-1.2); Total Protein 7.4 g/dL (6.6-8.7)
[2024-11-25 18:59] LABS: Add Urine Microscopic? YES; Bacteria Urine Trace /hpf; Hyaline Casts Urine 0-4 /lpf; RBC Urine 0-2 /hpf (0-2); Squamous Epithelial Cell Urine 0-5 /hpf (0-5); WBC Urine 0-5 /hpf (0-5)
[2024-11-25 19:00] VITALS: BP 144/108; PULSE 69; RESP 16; O2SAT 90
[2024-11-25 19:26] LABS: Covid PCR NEGATIVE (Negative); Influenza A NEGATIVE (Negative); Influenza B NEGATIVE (Negative); Respiratory Syncytial Virus Ce NEGATIVE (Negative)
[2024-11-25] MEDS: cefTRIAXone 1,000 MG in water for injection-sterile 2.1 ML 2.1 MG IM (20:01)
[2024-11-25 20:17] VITALS: BP 140/72; PULSE 81; RESP 16; O2SAT 96
== END 2024-11-25 20:14 | disposition home or self-care (01) ==
PROVIDERS: Emergency Provider Physician Assistant
DX: M94.0 Chondrocostal junction syndrome [Tietze] (principal); J20.9 Acute bronchitis, unspecified; Z79.84 Long term (current) use of oral hypoglycemic drugs; Z79.82 Long term (current) use of aspirin; E78.5 Hyperlipidemia, unspecified; E11.9 Type 2 diabetes mellitus without complications; Z11.52 Encounter for screening for COVID-19
CPT/HCPCS: 36415; 71046; 80053; 81001; 85025; 87637; 96372; 99284; J0696; J1885

== ENCOUNTER 2024-12-25 16:13 | Emergency (ER) | payer OTHER, SELFPAY ==
[2024-12-25 16:19] VITALS: BP 159/75; PULSE 91; RESP 16; TEMP 37; O2SAT 95; BMI 50.1
[2024-12-25 18:43] LABS: Influenza A NEGATIVE (Negative); Influenza B NEGATIVE (Negative); Respiratory Syncytial Virus Ce NEGATIVE (Negative); SARS-CoV-2 PCR NEGATIVE (Negative)
--- NOTE | 2024-12-25 19:07 | W.ED.URI ---
HPI - URI/Sore Throat General: Chief Complaint: Upper Respiratory Infection Stated Complaint: coughing,stuff head Time Seen by Provider: 12/25/24 18:13 Source: patient Mode of arrival: ambulatory Limitations: no limitations History of Present Illness: Patient is a 59-year-old female presents to ED today with complaint of cough, nasal congestion, sinus pain/pressure, productive cough over the past 2 days. has been sick for similar symptoms as well as several other family members. Patient states I am sick and I need a shot . She has not been running fevers. No vomiting or diarrhea. 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 MD elicited complaint: cough and nasal congestion Onset (ago): day(s) Consistency: constant Severity: moderate Description of mucous: yellow and green Able to tolerate fluids by mouth: Yes Exacerbating factors: nothing Relieving factors: nothing Context: sick contacts () Associated symptoms: Reports nasal congestion and sinus pain; Deny abdominal pain, chills, chest pain, ear or mastoid pain, fever(s) or headache(s) Treatments prior to arrival: none Related Data Home Medications ?Medication ?Instructions ?Recorded ?Confirmed atorvastatin 10 mg tablet 10 mg PO DAILY 11/14/19 11/25/24 lisinopril 20 1 tab PO DAILY 11/14/19 11/25/24 mg-hydrochlorothiazide 25 mg tablet aspirin 81 mg tablet,delayed 81 mg PO DAILY 06/21/20 11/25/24 release (Randolph Low Dose Aspirin) biotin 1 mg tablet 1 mg PO DAILY 10/04/21 11/25/24 metformin 1,000 mg tablet,extended 1,000 mg PO BID 10/04/21 11/25/24 release 24hr (osmotic) turmeric 100 mg-eide 150 1 cap PO DAILY 07/17/23 11/25/24 mg-olive 50 mg-oreg 150 mg-capryl capsule Previous Rx's ?Medication ?Instructions ?Recorded oxybutynin chloride 5 mg tablet 5 mg PO DAILY #30 tabs 01/14/22 allopurinol 100 mg tablet 100 mg PO BID #30 tabs 03/13/23 indomethacin 50 mg capsule 50 mg PO TID #20 caps 05/01/23 Allergies Allergy/AdvReac Type Severity Reaction Status Date / Time latex Allergy ALGY-Rash Verified 11/25/24 14:43 codeine AdvReac Mild ADR-Nausea Verified 11/25/24 14:43 Review of Systems Const: Denies: fever(s), chills, body aches or fatigue Eyes: Denies: change in vision, blurry vision, photophobia, eye discomfort or eye discharge ENMT: Reports: nasal congestion and sinus pain; Denies: throat pain, enlarged tonsils, odynophagia, swelling of lips/tongue, oral sores, ear or mastoid pain, ear discharge, nasal discharge or post nasal drip Card: Denies: chest pain Resp: Reports: productive cough and change in phlegm color; Denies: dyspnea, non-productive cough or wheezing GI: Denies: abdominal pain Musc: Denies: neck pain, back pain, extremity pain, joint swelling or joint redness Skin/Breast: Denies: rash Neuro: Denies: headache(s) or dizziness All/Imm: Denies: facial swelling or seasonal rhinorrhea PFSH ED PFSH: Medical History Obstructive sleep apnea Generalized anxiety disorder Hyperlipidemia Diabetes Hypertension Menopause syndrome Hidradenitis suppurativa Hearing loss Hyposmia Nasal turbinate hypertrophy Nasal septal deformity Surgical History History of tonsillectomy History of nasal surgery History of colonoscopy History of left shoulder replacement (10/12/18) History of melanoma excision Left shoulder and right bicep regions History of hand surgery Reattachment of the left middle finger and pinky History of hemorrhoidectomy Family History Mother Hypertension Hypercholesterolemia Family history of thyroid problem CAD (coronary artery disease) Heart disease Sister Family history of thyroid problem Brother Colon cancer Denies family history of Diabetes Clotting disorder Chronic kidney disease (CKD) Bleeding disorder Stroke Social History Smoking and tobacco/nicotine status: never used tobacco/nicotine Physical Exam Const: COMMON NORMALS: no acute distress, patient oriented x3, no limitations, alert and well nourished GENERAL APPEARANCE: cooperative NUTRITIONAL APPEARANCE: obese morbidly obese (BMI 50.1) HENMT: COMMON NORMALS: normocephalic, atraumatic, hearing grossly normal bilaterally, external ears normal, EAC's normal, TM's normal bilaterally, Normal external nose present, Normal nasal mucous membranes and turbinates present, moist oral mucous membranes and oropharynx normal HEAD & SCALP: normal to inspection, normocephalic and atraumatic FACE & SINUS: normal facial exam and sinus tenderness NOSE: Normal external nose present, Normal nasal mucous membranes and turbinates present and Nasal discharge present EXTERNAL EAR: Yes external ears normal EXTERNAL AUDITORY CANAL: EAC's normal TYMPANIC MEMBRANE: TM's normal bilaterally MOUTH: Normal oral and palatal mucosa present and lip normal THROAT: posterior oropharynx normal, tonsils normal and uvula midline Eye: COMMON NORMALS: Equal, round and reactive pupils present, EOMs intact bilaterally and conjunctivae normal CONJUNCTIVA: Yes conjunctivae normal PUPIL: Yes Equal, round and reactive pupils present Neck/C-Spine: COMMON NORMALS: no lymphadenopathy Resp: COMMON NORMALS: normal respiratory effort and clear to auscultation bilaterally AUSCULTATION: clear to auscultation bilaterally Cardio: COMMON NORMALS: regular rate and regular rhythm RATE: regular rate RHYTHM: regular rhythm Neuro: COMMON NORMALS: patient oriented x3 SENSORIUM/ORIENTATION: Yes alert Course Vital Signs: Vital signs: Vital Signs Temperature 98.6 F 12/25/24 16:19 Pulse Rate 80 12/25/24 19:35 Respiratory Rate 16 12/25/24 16:19 Blood Pressure 162/113 12/25/24 19:35 Pulse Oximetry 93 12/25/24 19:35 Oxygen Delivery Me thod Room Air 12/25/24 16:19 MDM - URI/Sore Throat Medical Decision Making Patient appears in no acute distress. Her influenza/COVID/RSV swab was unremarkable. Lungs are clear to auscultation. Most likely viral illness given her multiple sick contacts recently. She does not require antibiotics. Patient feels comfortable using [id number] therapies to help with her cough and congestion. She was given a shot of IM Solu-Medrol prior to discharge and will be allowed home. Medical Records I reviewed the patient's medical records. Lab Data I reviewed the patient's lab results. Laboratory Results Influenza A (PCR) Negative (Negative) 12/25/24 17:58 Influenza Type B (PCR) Negative (Negative) 12/25/24 17:58 RSV (PCR) Negative (Negative) 12/25/24 17:58 SARS-CoV-2 (PCR) Negative (Negative) 12/25/24 17:58 No radiology studies performed this visit Discharge Plan Discharge Patient Disposition: Home Clinical Impression: Viral upper respiratory tract infection with cough Condition: Stable Prescriptions: No Action atorvastatin 10 mg tablet 10 mg PO DAILY lisinopril-hydrochlorothiazide 20-25 mg tablet 1 tab PO DAILY metformin 1,000 mg tablet extended release 24hr 1,000 mg PO BID biotin 1 mg tablet 1 mg PO DAILY oxybutynin chloride 5 mg tablet 5 mg PO DAILY Qty: 30 3RF aspirin [Randolph Low Dose Aspirin] 81 mg Tablet,Delayed Release (Dr/Ec) 81 mg PO DAILY indomethacin 50 mg capsule 50 mg PO TID Qty: 20 0RF Rx Instructions: administer with food or milk [id number]-oreg-capry 100 mg-150 mg- 50 mg-150 mg Capsule 1 cap PO DAILY allopurinol 100 mg tablet 100 mg PO BID Qty: 30 1RF Discharge Orders: Discharge ED (Routine); Ordered 12/25/24 Ordered By: Arlene Carrillo Patient Instructions: Upper Respiratory Infection (DC) Print Language: Bulgarian Coding Level of Care Code ED [employer]ic for Monika Siddiqui
[2024-12-25] MEDS: methylPREDNISolone sod succ 125 mg/2 mL INJ IM (19:22)
[2024-12-25 19:24] VITALS: BP 158/69; PULSE 86; O2SAT 97
[2024-12-25 19:35] VITALS: BP 162/113; PULSE 80; O2SAT 93
== END 2024-12-25 19:30 | disposition home or self-care (01) ==
PROVIDERS: Emergency Provider Physician Assistant
DX: J06.9 Acute upper respiratory infection, unspecified (principal); Z11.52 Encounter for screening for COVID-19; Z79.84 Long term (current) use of oral hypoglycemic drugs; Z79.82 Long term (current) use of aspirin; E11.9 Type 2 diabetes mellitus without complications; I10 Essential (primary) hypertension; E78.5 Hyperlipidemia, unspecified
CPT/HCPCS: 87637; 96372; 99284; J2919